=== PATIENT | female | born 1965 | race Caucasian/White ===

== ENCOUNTER → 2016-03-27 | Outpatient (CLI) | payer MEDICARE, OTHER ==
--- NOTE | 2016-03-27 19:24 | CT ---
EXAMINATION TYPE: CT brain wo/w con DATE OF EXAM: 03/27/2016 7:17 PM COMPARISON: NONE HISTORY: Headache x [address] DLP: 2161.00 mGycm Automated exposure control for dose reduction was used. CONTRAST: CT scan of the head is performed without and with IV Contrast, patient injected with 100 mL of Omnipa que 300. FINDINGS: The ventricles and sulci appear normal. There is no mass effect nor midline shift. There is no sign o f intracranial hemorrhage. There is no pathologic enhancement. The calvarium is intact. IMPRESSION: Negative CT scan of the brain with and without contrast.
== END | disposition home or self-care (01) ==
LOC: RADCTMAIN 18:39
PROVIDERS: ATTEND Family Medicine
DX: R51 Headache (principal)
CPT/HCPCS: 70470; Q9967

== ENCOUNTER → 2016-07-24 | Outpatient (CLI) | payer MEDICARE, OTHER ==
--- NOTE | 2016-07-24 08:30 | CT ---
EXAMINATION TYPE: CT cervical spine wo con DATE OF EXAM: 07/24/2016 COMPARISON: NONE HISTORY: Chronic headaches CT DLP: 275.50 mGycm Automated exposure control for dose reduction was used. TECHNIQUE: CT scan of the cervical spine is obtained without contrast, axial images are obtained, sa gittal and coronal reformatted images are also reviewed. FINDINGS: No acute fractures are evident. Disc heights are preserved. Vertebral body heights are pres erved. No spinal canal stenosis or neural foraminal stenosis is present. There is some straightening of the cervical spine which can be related to patient positioning or muscle spasm. No suspicious foca l disc herniations or significant disc bulges are evident. There is some mild uncovertebral joint hyp ertrophy without foraminal stenosis. IMPRESSION: 1. Very minimal degenerative joint changes. 2. No acute osseous process.
== END | disposition home or self-care (01) ==
LOC: RADCTMAIN 07:10
PROVIDERS: ATTEND Family Medicine
DX: M47.812 Spondylosis without myelopathy or radiculopathy, cervical region (principal); R51 Headache
CPT/HCPCS: 72125

== ENCOUNTER → 2016-12-04 | Outpatient (CLI) | payer MEDICARE, OTHER ==
[2016-12-04 09:40] LABS: Anion Gap 9 mmol/L; Blood Urea Nitrogen 15 mg/dL (7-17); Calcium 9.2 mg/dL (8.4-10.2); Carbon Dioxide 25 mmol/L (22-30); Chloride 108 mmol/L (98-107); Glucose 85 mg/dL (74-99); Non-African American GFR(MDRD) >60 (>60 ml/min/1.73 sqM); Sodium 142 mmol/L (137-145)
[2016-12-04 09:42] LABS: CH 29.5; CHCM 31.7; HCT 39.3 % (34.0-46.0); HDW 2.13; HGB 12.5 gm/dL (11.4-16.0); MCH 29.7 pg (25.0-35.0); MCHC 31.9 g/dL (31.0-37.0); MCV 93.2 fL (80.0-100.0); Mean Platelet Volume 6.8; RBC 4.22 m/uL (3.80-5.40); RDW 12.3 % (11.5-15.5); WBC 6.9 k/uL (3.8-10.6)
== END | disposition home or self-care (01) ==
LOC: LABWHC1 08:24
PROVIDERS: ATTEND Internal Medicine Clinical Cardiac Electrophysiology
DX: R55 Syncope and collapse (principal); R00.2 Palpitations
CPT/HCPCS: 36415; 80048; 85027

== ENCOUNTER 2017-03-03 16:36 | Emergency (ER) | payer MEDICARE, OTHER ==
[2017-03-03 16:45] VITALS: BP 136/63; TEMP 97.3
[2017-03-03] MEDS ORDERED: DIPH,PERTUS(ACELL)TETVAC-LF 0.5 ML VIAL IM ONE (17:01)
[2017-03-03] MEDS ORDERED: KETOROLAC 30 MG/ML 1 ML VIAL IM STA (17:01)
[2017-03-03] MEDS ORDERED: DOXYCYCLINE 50 MG CAP PO STA (17:01)
--- NOTE | 2017-03-03 17:03 | ED ---
Animal Bite HPI - General Chief Complaint: Animal Bite Stated Complaint: Cat Bite Time Seen by Provider: 03/03/17 16:52 Source: patient Mode of arrival: ambulatory Limitations: no limitations - History of Present Illness Initial Comments: 59-year-old female patient presents to the emergency department today for evaluation of a cat bite to the left hand. Patient states that throughout the day the hand has become more painful and swollen. She states that the cat is up -to-date on his immunizations. She is unsure when her last tetanus vaccine was. She denies any difficulty with range of motion to the hand. Patient denies any headache, neck pain, back pain, chest pain, shortness of breath, dizziness, weakness, abdominal pain, nausea, vomiting, or difficulties with bowel movements or urination. - Related Data Home Medications Medication Instructions Recorded Confirmed ALPRAZolam [Xanax] 0.25 mg PO BID PRN 01/04/14 12/14/16 lamoTRIgine [LaMICtal] 200 mg PO BID 01/04/14 12/14/16 Cyclobenzaprine [Flexeril] 10 mg PO HS 12/08/16 12/14/16 Levothyroxine Sodium [Synthroid] 25 mcg PO DAILY 12/08/16 12/14/16 Omeprazole [PriLOSEC] 40 mg PO AC-BRKFST 12/08/16 12/14/16 QUEtiapine FUMARATE [SEROquel] 400 mg PO HS 12/08/16 12/14/16 Topiramate [Topamax] 100 mg PO BID 12/08/16 12/14/16 Venlafaxine HCl [Effexor XR] 225 mg PO HS 12/08/16 12/14/16 metFORMIN HCL [Glucophage] 500 mg PO HS 12/08/16 12/14/16 oxyCODONE-APAP 10-325MG [Percocet 1 tab PO TID 12/08/16 12/14/16 10-325 mg] Previous Rx's Medication Instructions Recorded Doxycycline Hyclate 100 mg PO BID #28 tab 03/03/17 Allergies Allergy/AdvReac Type Severity Reaction Status Date / Time Penicillins Allergy Unknown Verified 03/03/17 16:45 Review of Systems ROS Statement: Those systems with pertinent positive or pertinent negative responses have been documented in the HPI. ROS Other: All systems not noted in ROS Statement are negative. Past Medical History Past Medical History: Seizure Disorder Additional Past Medical History / Comment(s): colitis History of Any Multi-Drug Resistant Organisms: None Reported Past Surgical History: Hysterectomy, Orthopedic Surgery Past Psychological History: Anxiety, Bipolar, Depression Smoking Status: Current every day smoker Past Alcohol Use History: None Reported Past Drug Use History: None Reported General Exam Limitations: no limitations General appearance: alert, in no apparent distress, other (This is a well- developed, well-nourished adult female patient in no acute distress. Vital signs upon presentation are temperature 97.3F, pulse 108, respirations 20, blood pressure 136/63, pulse ox 100% on room air.) Eye exam: Present: normal appearance, PERRL, EOMI. Absent: scleral icterus, conjunctival injection, periorbital swelling ENT exam: Present: normal exam, normal oropharynx, mucous membranes moist Respiratory exam: Present: normal lung sounds bilaterally. Absent: respiratory distress, wheezes, rales, rhonchi, stridor Cardiovascular Exam: Present: regular rate, normal rhythm, normal heart sounds. Absent: systolic murmur, diastolic murmur, rubs, gallop, clicks GI/Abdominal exam: Present: soft, normal bowel sounds. Absent: distended, tenderness, guarding, rebound, rigid Extremities exam: Present: full ROM, tenderness (Over the dorsum of the left hand), normal capillary refill, other (Swelling over the dorsum of the left hand. 2 scabbed puncture wounds noted, with minimal surrounding erythema.. Skin is otherwise pink, warm, and dry. Temperature is equal to the other hand. Radial pulses 2+ and equal bilaterally. Patient exhibits full range of motion of the hand. ). Absent: normal inspection, pedal edema, joint swelling , calf tenderness Neurological exam: Present: alert, oriented X3, CN II-XII intact Psychiatric exam: Present: normal affect, normal mood Skin exam: Present: warm, dry, intact, normal color. Absent: rash Course Vital Signs 03/03/17 16:42 Temperature 97.3 F L Pulse Rate 108 H Respiratory 20 Rate Blood Pressure 136/63 O2 Sat by Pulse 100 Oximetry Medical Decision Making - Medical Decision Making 51-year-old female patient presents to the emergency department today for evaluation of a Bite to her left hand. Physical examination did reveal 2 puncture wounds with minimal surrounding erythema. Patient will be given a dose of doxycycline here in the department. She'll be given a prescription for doxycycline for 14 days. She is also given a be updated on her tetanus. She' ll be discharged home at this time to follow-up with her primary care physician for recheck in 1-2 days. She was educated regarding return parameters. She is instructed to return here immediately for any new, worsening, or concerning symptoms. Disposition Clinical Impression: Cat bite of hand Disposition: HOME SELF-CARE Condition: Good Instructions: Animal Bite (ED) Additional Instructions: Return immediately if you see red streaking from the wound up your hand or arm. Follow-up with her primary care physician for recheck of the wounds in 1-2 days. Take home pain medications as directed for relief. Keep hand elevated. Return here immediately for any other new, worsening, or concerning symptoms. Prescriptions: Doxycycline Hyclate 100 mg PO BID #28 tab Referrals: Zofia Mosqueda DO [Primary Care Provider] - 1-2 days Time of Disposition: 17:03
[2017-03-03 17:34] VITALS: PULSE 98; RESP 18
== END 2017-03-03 17:34 | disposition home or self-care (01) ==
LOC: EC 16:36
DX: S61.452A Open bite of left hand, initial encounter (principal); F41.9 Anxiety disorder, unspecified; F32.9 Major depressive disorder, single episode, unspecified; F17.200 Nicotine dependence, unspecified, uncomplicated; Z23 Encounter for immunization; Z86.69 Personal history of other diseases of the nervous system and sense organs; Z79.84 Long term (current) use of oral hypoglycemic drugs; Z79.891 Long term (current) use of opiate analgesic; Z79.899 Other long term (current) drug therapy; Z88.0 Allergy status to penicillin; W55.01XA Bitten by cat, initial encounter
CPT/HCPCS: 99283; 96372; 90471; 90715; J1885

== ENCOUNTER → 2017-04-24 | Outpatient (CLI) | payer MEDICARE, OTHER ==
--- NOTE | 2017-04-24 14:02 | US ---
EXAMINATION TYPE: US pelvic complete DATE OF EXAM: 04/24/2017 COMPARISON: CT & US 2014 CLINICAL HISTORY: Pelvic Pain R10.2. Intermittent left pelvic pain x 6 months, history of ovarian cys ts, hysterectomy and right oophorectomy 20+ years ago, 0 TECHNIQUE: Transabdominal sonographic images of the pelvis were acquired. Transvaginal sonographic images were medically necessary to better assess the following anatomy: left ovary Date of LMP: 20+ years ago EXAM MEASUREMENTS: Uterus: surgically absent Endometrial Stripe: surgically absent Right Ovary: surgically absent Left Ovary: not seen 1. Uterus: surgically absent 2. Endometrium: surgically absent 3. Right Ovary: surgically absent 4. Left Ovary: not seen due to overlying peristalsing bowel 5. Bilateral Adnexa: wnl 6. Posterior cul-de-sac: wnl IMPRESSION: Postsurgical pelvic ultrasound appears within normal limits
--- NOTE | 2017-04-24 14:03 | US ---
EXAMINATION TYPE: US abdomen complete DATE OF EXAM: 04/24/2017 COMPARISON: CT & US 2014 CLINICAL HISTORY: R10.84 abdominal pain. Intermittent left pelvic pain x 6 months EXAM MEASUREMENTS: Liver Length: 14.4 cm Gallbladder Wall: 0.2 cm CBD: 0.4 cm Spleen: 8.3 cm Right Kidney: 9.4 x 4.1 x 4.9 cm Left Kidney: 9.4 x 5.2 x 4.8 cm Pancreas: visualized portions wnl, tail obscured by overlying midline bowel gas Liver: wnl Gallbladder: multiple echogenic shadowing foci, wall measures wnl Evidence for sonographic Manjarrez's sign: yes CBD: wnl Spleen: visualized portions wnl, limited by rib shadowing and overlying bowel gas Right Kidney: wnl Left Kidney: visualized portions wnl, limited by rib shadowing and overlying bowel gas Upper IVC: wnl Abd Aorta: wnl IMPRESSION: 1. Cholelithiasis. 2. Tiny cyst at the inferior pole left kidney.
== END | disposition home or self-care (01) ==
LOC: RADUSWWP 08:36
PROVIDERS: ATTEND Family Medicine
DX: K80.20 Calculus of gallbladder without cholecystitis without obstruction (principal); R10.2 Pelvic and perineal pain; Z98.890 Other specified postprocedural states
CPT/HCPCS: 76700; 76830; 76856

== ENCOUNTER → 2017-05-07 | Outpatient (CLI) | payer MEDICARE, OTHER ==
[2017-05-07 13:28] LABS: Blood Urea Nitrogen 15 mg/dL (7-17)
--- NOTE | 2017-05-07 14:39 | CT ---
EXAMINATION TYPE: CT pelvis w con DATE OF EXAM: 05/07/2017 COMPARISON: NONE HISTORY: Left lower quadrant pain. Previous cyst found on left ovary per patient. CT DLP: 552 mGycm Automated exposure control for dose reduction was used. CONTRAST: Performed with IV Contrast, patient injected with 100 mL of Isovue M300. FINDINGS: Bowel gas pattern nonspecific. Osseous structures intact. No free fluid. Aorta of normal caliber with atherosclerotic changes. No pathologic adenopathy. Uterus is not seen correlate for previous hysterectomy. No adnexal mass. IMPRESSION: NO ACUTE PROCESS.
== END | disposition home or self-care (01) ==
LOC: RADCTMAIN 12:29
PROVIDERS: ATTEND Family Medicine
DX: R10.2 Pelvic and perineal pain (principal); R10.9 Unspecified abdominal pain; Z88.0 Allergy status to penicillin
CPT/HCPCS: 82565; 84520; 72193; 36415; Q9967

== ENCOUNTER 2017-05-10 08:54 | Day surgery (SDC) | payer MEDICARE, OTHER ==
[2017-05-08 10:11] VITALS: BMI 19.3
[~2017-05-10 08:54] MED LIST: DEXAMETHASONE SOD PHOSPHATE 10 MG/ML 1 ML VIAL IV ONE; HEPARIN SODIUM,PORCINE 5,000 UNIT/ML 1 ML VIAL SQ ONE; HYDROmorphone 0.5 MG/0.5 ML SYRINGE IVP PRN; LACTATED RINGERS 1,000 ML IV SCH; LIDOCAINE 1% 20 ML VIAL (10MG/ML) FOR IV START INTRADERMA PRN; MIDAZOLAM 2 MG/2 ML VIAL IV PRN; MORPHINE SULFATE 2 MG/ML SYRINGE IV PRN; ONDANSETRON 4 MG/2 ML VIAL IVP ONE; SCOPOLAMINE 1.5MG/72HR PATCH TRANSDERM ONE; ceFAZolin IN SWFI 2 GM/20 ML SYRINGE IVP ONE; fentaNYL (PF) 50 MCG/ML 2 ML AMP IV PRN; metroNIDAZOLE-NS PMX 500 MG in SALINE 1 100ML.BAG IVPB ONE
[2017-05-10 10:10] LABS: Glucose,Whole Blood 96 mg/dL (75-99)
--- NOTE | 2017-05-10 10:19 | P.GSHP ---
History of Present Illness H&P Date: 05/10/17 Chief Complaint: Right upper quadrant pain, cholelithiasis This is a 51-year-old female who sees Dr. Zofia Mosqueda is an outpatient. Patient complaints of epigastric and right upper quadrant abdominal pain. Her recent ultrasound shows evidence of cholelithiasis. She presents today for laparoscopic cholecystectomy. Past Medical History Past Medical History: GERD/Reflux, Seizure Disorder, Thyroid Disorder Additional Past Medical History / Comment(s): GALLBLADDER DISORDER. LAST SEIZURE 05/06/17. NEUROPATHY RT FOOT History of Any Multi-Drug Resistant Organisms: None Reported Past Surgical History: Hysterectomy, Orthopedic Surgery Additional Past Surgical History / Comment(s): VAGUS NERVE STIMULATOR FOR SEIZURES. LT SHOULDER SX. BILAT EYE SX. COLONOSCOPY Past Anesthesia/Blood Transfusion Reactions: No Reported Reaction Smoking Status: Former smoker - Past Family History Mother Family Medical History: No Reported History Medications and Allergies Home Medications Medication Instructions Recorded Confirmed Type lamoTRIgine [LaMICtal] 200 mg PO BID 01/04/14 05/10/17 History Levothyroxine Sodium [Synthroid] 25 mcg PO DAILY 12/08/16 05/10/17 History Omeprazole [PriLOSEC] 40 mg PO AC-BRKFST 12/08/16 05/10/17 History QUEtiapine FUMARATE [SEROquel] 400 mg PO HS 12/08/16 05/10/17 History Topiramate [Topamax] 100 mg PO BID 12/08/16 05/10/17 History metFORMIN HCL [Glucophage] 500 mg PO HS 12/08/16 05/10/17 History oxyCODONE-APAP 10-325MG [Percocet 1 tab PO TID 12/08/16 05/10/17 History 10-325 mg] DULoxetine HCL [Cymbalta] 60 mg PO HS 05/08/17 05/10/17 History Fludrocortisone [Florinef] 0.1 mg PO DAILY 05/08/17 05/10/17 History busPIRone HCL 10 mg PO BID 05/08/17 05/10/17 History Allergies Allergy/AdvReac Type Severity Reaction Status Date / Time Penicillins Allergy Unknown Verified 03/03/17 16:45 Surgical - Exam Vital Signs Temp Pulse Resp BP Pulse Ox 99.2 F 107 H 16 120/59 98 05/10/17 09:48 05/10/17 09:48 05/10/17 09:48 05/10/17 09:48 05/10/17 09:48 - General well developed, no distress - Eyes PERRL - ENT normal pinna - Neck no masses - Respiratory normal expansion - Cardiovascular Rhythm: regular - Abdomen Abdomen: soft, non tender Assessment and Plan Assessment: Right upper quadrant pain Cholelithiasis We'll perform laparoscopic cholecystectomy.
[2017-05-10] MEDS ORDERED: PROPOFOL 10 MG/ML 20 ML VIAL IV ONE (10:42)
[2017-05-10] MEDS ORDERED: NEOSTIGMINE 1 MG/ML 10 ML VIAL ONE (10:42)
[2017-05-10] MEDS ORDERED: fentaNYL (PF) 50 MCG/ML 2 ML AMP ONE (10:42)
[2017-05-10] MEDS ORDERED: LIDOCAINE 1% INJ 10MG/ML (20 ML MDV) ONE (10:42)
[2017-05-10] MEDS ORDERED: SUCCINYLCHOLINE CHLORIDE 100 MG/5 ML SYR IV ONE (10:42)
[2017-05-10] MEDS ORDERED: MIDAZOLAM 2 MG/2 ML VIAL ONE (10:42)
[2017-05-10] MEDS ORDERED: GLYCOPYRROLATE 0.2 MG/ML 2 ML VIAL ONE (10:42)
[2017-05-10] MEDS ORDERED: SODIUM CHLORIDE 0.9% 50 ML with ceFAZolin 2,000 MG IV ONE ×2 (10:42)
[2017-05-10] MEDS ORDERED: KETOROLAC 30 MG/ML 1 ML VIAL ONE (10:42)
[2017-05-10] MEDS ORDERED: ROCURONIUM BROMIDE 10 MG/ML 10 ML VIAL IV ONE (10:42)
[2017-05-10] MEDS ORDERED: BUPIVACAINE (PF) 0.25% 30 ML VIAL SQ ONE (10:59)
--- NOTE | 2017-05-10 11:12 | P.OP ---
Date of Procedure: 05/10/17 Preoperative Diagnosis: Cholelithiasis Chronic cholecystitis Postoperative Diagnosis: Cholelithiasis Chronic cholecystitis Procedure(s) Performed: Laparoscopic cholecystectomy Anesthesia: AUGUSTIN Surgeon: Alexander Mercado Estimated Blood Loss (ml): 5 Pathology: other (Gallbladder) Condition: stable Disposition: PACU Description of Procedure: The patient was placed on the operating table. The patient received a general endotracheal tube anesthesia. The patients abdomen was prepped and draped in the usual sterile fashion. Through an infraumbilical stab incision, the fascia of the anterior abdominal wall was grasped with a pair of Kochers and then the Veress needle was placed in the peritoneal cavity. Position of the Veress needle was confirmed with positive drop test. The abdomen was then insufflated. After adequate insufflation, the 10 mm trocar was placed in the peritoneal cavity. Following this the laparoscope was placed in the peritoneal cavity. The patient was placed in the head-up, right side up position and then a 5 mm trocar was placed in the right lateral and right subcostal position under direct visualization. A 8 mm trocar was placed in the epigastric position. The gallbladder was grasped in the fundus and infundibulum. Traction on the gallbladder was placed in the lateral and the cephalad positions. The triangle of Calot was visualized.. The cystic duct was bluntly dissected until the union of the cystic duct and common bile duct was seen. The cystic duct was then divided and sealed with the Harmonic scissors. A PDS Endoloop was then placed throughout the cystic duct stump. The cystic artery divided and sealed with the Harmonic scissors. The gallbladder was then removed from the liver bed using Harmonic scissors. The gallbladder was then extracted through the epigastric port site. Operative field was checked for any bleeding spots and Harmonic scissors was used to coagulate the liver bed. The abdomen was irrigated. The trocars were removed. The skin was closed using interrupted 3-0 Vicryl suture. Dermabond dressing were applied. The patient tolerated the procedure well.
[2017-05-10 11:29] VITALS: TEMP 97.5
[2017-05-10] MEDS: MEPERIDINE 50 MG/ML SYRINGE IVP ONE ×2 (11:35→11:41)
[2017-05-10] MEDS ORDERED: diphenhydrAMINE 50 MG/ML 1 ML VIAL IVP ONE (11:40)
[2017-05-10] MEDS ORDERED: LACTATED RINGERS 1,000 ML IV ONE (11:41)
[2017-05-10 12:32] VITALS: RESP 16
[2017-05-10] MEDS ORDERED: HYDROcodone/APAP 7.5-325MG 1 EACH TAB PO ONE (12:36)
[2017-05-10 12:50] VITALS: BP 115/74; PULSE 64
== END 2017-05-10 12:59 | disposition home or self-care (01) ==
LOC: OR 08:54
PROVIDERS: ATTEND Surgery
DX: K80.10 Calculus of gallbladder with chronic cholecystitis without obstruction (principal); E07.9 Disorder of thyroid, unspecified; G40.909 Epilepsy, unspecified, not intractable, without status epilepticus; E11.40 Type 2 diabetes mellitus with diabetic neuropathy, unspecified; F41.9 Anxiety disorder, unspecified; K21.9 Gastro-esophageal reflux disease without esophagitis; F31.9 Bipolar disorder, unspecified; Z87.891 Personal history of nicotine dependence; Z88.0 Allergy status to penicillin; Z90.710 Acquired absence of both cervix and uterus; Z79.84 Long term (current) use of oral hypoglycemic drugs; Z79.899 Other long term (current) drug therapy; Z79.891 Long term (current) use of opiate analgesic
CPT/HCPCS: 88304; 47562; J2250; J1200; J1644; J1100; J2710; J2175; J2405; J2001; J3010; J1885; J0690; J0330; J2704

== ENCOUNTER → 2017-06-18 | Outpatient (CLI) | payer MEDICARE, OTHER ==
--- NOTE | 2017-06-19 09:11 | MM ---
Reason for exam: screening (asymptomatic). Last mammogram was performed 1 year and 1 month ago. Physical Findings: A clinical breast exam by your physician is recommended on an annual basis and results should be correlated with mammographic findings. MG Screening Mammo w CAD Bilateral CC and MLO view(s) were taken. Prior study comparison: May 18, 2016, bilateral MG diagnostic mammo w CAD ANTONIA. September 11, 2014, bilateral MG screening mammo w CAD. The breast tissue is heterogeneously dense. This may lower the sensitivity of mammography. There is chronic nodularity bilaterally. There is no dominant lesion. No significant changes when compared with prior studies. ASSESSMENT: Benign, BI-RAD 2 RECOMMENDATION: Routine screening mammogram of both breasts in 1 year.
== END | disposition home or self-care (01) ==
LOC: RADMAMWWP 09:01
PROVIDERS: ATTEND Family Medicine
DX: Z12.31 Encounter for screening mammogram for malignant neoplasm of breast (principal)
CPT/HCPCS: 77067

== ENCOUNTER → 2017-06-21 | Outpatient (CLI) | payer MEDICARE, OTHER ==
--- NOTE | 2017-06-21 10:30 | CT ---
EXAMINATION TYPE: CT brain wo con DATE OF EXAM: 06/21/2017 COMPARISON: 03/27/2016 INDICATION: TABARES, dizziness DLP: 1121 mGycm, Automated exposure control for dose reduction was used. CONTRAST: None CT of the brain is performed utilizing 3 mm thick sections through the posterior fossa and 3 mm thick sections through the remaining calvarium. Study is performed within 24 hours of arrival to the hosp [facility]. No abnormal hyperdensity is present to suggest an acute intracranial hemorrhage. No mass lesion is evident. No acute infarcts are evident. Ventricles and sulci are appropriate for the patient age. Paranasal sinuses and mastoid air cells within the [id number] are clear. IMPRESSIONS: 1. Normal CT Brain
== END | disposition home or self-care (01) ==
LOC: RADCTMAIN 08:35
PROVIDERS: ATTEND Psychiatry & Neurology Neurology
DX: R42 Dizziness and giddiness (principal); R56.9 Unspecified convulsions; Z88.0 Allergy status to penicillin
CPT/HCPCS: 36415; 70450; 80201

== ENCOUNTER → 2017-07-14 | Outpatient (CLI) | payer MEDICARE, OTHER | END | disposition home or self-care (01) | LOC: LABWHC1 08:30 | PROVIDERS: ATTEND Psychiatry & Neurology Pain Medicine | DX: Z01.818 Encounter for other preprocedural examination (principal) | CPT/HCPCS: 93005 ==

== ENCOUNTER → 2017-08-07 | Outpatient (CLI) | payer MEDICARE, OTHER ==
[2017-08-07 11:57] LABS: HCT 42.5 % (34.0-46.0); HGB 13.4 gm/dL (11.4-16.0); MCH 28.6 pg (25.0-35.0); MCHC 31.6 g/dL (31.0-37.0); MCV 90.8 fL (80.0-100.0); Mean Platelet Volume 6.8; Platelet Count 336 k/uL (150-450); RBC 4.68 m/uL (3.80-5.40); RDW 12.7 % (11.5-15.5); WBC 8.1 k/uL (3.8-10.6)
[2017-08-07 12:10] LABS: Albumin 4.1 g/dL (3.5-5.0); Calcium 9.8 mg/dL (8.4-10.2); Potassium 4.5 mmol/L (3.5-5.1); Total Bilirubin 0.2 mg/dL (0.2-1.3); Total Protein 6.8 g/dL (6.3-8.2)
[2017-08-07 12:23] LABS: T4, Free (Free Thyroxine) 0.87 ng/dL (0.78-2.19)
== END | disposition home or self-care (01) ==
LOC: LABWHC1 11:19
PROVIDERS: ATTEND Internal Medicine Clinical Cardiac Electrophysiology
DX: R06.02 Shortness of breath (principal); R53.83 Other fatigue; R00.0 Tachycardia, unspecified
CPT/HCPCS: 36415; 80053; 84439; 84443; 85027

== ENCOUNTER → 2017-09-11 | Outpatient (CLI) | payer MEDICARE, OTHER ==
--- NOTE | 2017-09-11 19:03 | CT ---
EXAMINATION TYPE: CT knee LT wo con DATE OF EXAM: 09/11/2017 COMPARISON: None HISTORY: Pain in left knee and Effusion left knee CT DLP: 283 mGycm Automated exposure control for dose reduction was used. TECHNIQUE: Axial images 3 mm thick sections. Reconstructed images in the coronal and sagittal planes. FINDINGS: Patellofemoral joint space appears preserved. Medial and lateral compartments are narrowed. No acute fractures are identified. No significant joint effusion is evident. Soft tissues appear normal. There is some slight increased sclerosis at the tibial plateau and distal femoral condyles compatible with moderate degenerative change. IMPRESSION: 1. OSTEOARTHRITIC DEGENERATIVE CHANGE GREATEST IN THE MEDIAL COMPARTMENT WITH SOME NARROWING AND SCLE ROSIS. 2. NO UNDERLYING FRACTURES IDENTIFIED. 3. NO SIGNIFICANT EFFUSION IDENTIFIED.
== END | disposition home or self-care (01) ==
LOC: RADCTMAIN 09:14
PROVIDERS: ATTEND Orthopaedic Surgery
DX: M25.862 Other specified joint disorders, left knee (principal); M17.12 Unilateral primary osteoarthritis, left knee

== ENCOUNTER 2017-10-06 14:24 | Observation (INO) | payer MEDICARE, OTHER ==
[2017-10-06] MEDS ORDERED: ASPIRIN 81 MG PO STA (14:54)
[2017-10-06] MEDS ORDERED: NITROGLYCERIN SL TABS 0.4 MG TAB SUBLINGUAL STA ×3 (14:54)
--- NOTE | 2017-10-06 14:57 | ED ---
General Adult HPI - General Chief complaint: Chest Pain Stated complaint: chest pain Time Seen by Provider: 10/06/17 14:45 Source: patient, RN notes reviewed Mode of arrival: ambulatory Limitations: no limitations - History of Present Illness Initial comments: Patient is a pleasant 52-year-old female presenting to the emergency Department with complaints of chest discomfort. Onset of symptoms was last night. Symptoms have been fairly steady. Discomfort does feel like pressure mostly on the right side near the breast. Patient does have some mild associated dyspnea and nausea. Patient was sweaty earlier this morning. No history of similar symptoms previously. Discomfort is currently rated5- 6/10. No leg pain or leg swelling. - Related Data Home Medications Medication Instructions Recorded Confirmed lamoTRIgine [LaMICtal] 200 mg PO BID 01/04/14 10/06/17 Levothyroxine Sodium [Synthroid] 25 mcg PO DAILY 12/08/16 10/06/17 Omeprazole [PriLOSEC] 40 mg PO AC-BRKFST 12/08/16 10/06/17 Topiramate [Topamax] 100 mg PO BID 12/08/16 10/06/17 metFORMIN HCL [Glucophage] 500 mg PO HS 12/08/16 10/06/17 oxyCODONE-APAP 10-325MG [Percocet 1 tab PO TID 12/08/16 10/06/17 10-325 mg] DULoxetine HCL [Cymbalta] 60 mg PO BID 05/08/17 10/06/17 Fludrocortisone [Florinef] 0.1 mg PO DAILY 05/08/17 10/06/17 Ibuprofen [Motrin] 800 mg PO DAILY PRN 10/06/17 10/06/17 QUEtiapine FUMARATE [Seroquel Xr] 400 mg PO HS 10/06/17 10/06/17 Topiramate [Topamax] 50 mg PO BID 10/06/17 10/06/17 Allergies Allergy/AdvReac Type Severity Reaction Status Date / Time Penicillins Allergy Unknown Verified 10/06/17 15:17 Review of Systems ROS Statement: Those systems with pertinent positive or pertinent negative responses have been documented in the HPI. ROS Other: All systems not noted in ROS Statement are negative. Constitutional: Denies: fever Eyes: Denies: eye pain ENT: Denies: ear pain Respiratory: Reports: dyspnea. Denies: cough Cardiovascular: Reports: chest pain Endocrine: Denies: fatigue Gastrointestinal: Reports: nausea. Denies: abdominal pain Genitourinary: Denies: dysuria Musculoskeletal: Denies: back pain Skin: Denies: rash Neurological: Denies: weakness Past Medical History Past Medical History: Seizure Disorder Additional Past Medical History / Comment(s): colitis, neuropathy History of Any Multi-Drug Resistant Organisms: None Reported Past Surgical History: Hysterectomy, Orthopedic Surgery Additional Past Surgical History / Comment(s): vagus nerve stimulator Past Psychological History: Anxiety, Bipolar, Depression Smoking Status: Current every day smoker Past Alcohol Use History: None Reported Past Drug Use History: None Reported General Exam Limitations: no limitations General appearance: alert, in no apparent distress Head exam: Present: atraumatic Eye exam: Present: normal appearance, PERRL ENT exam: Present: normal oropharynx Neck exam: Present: normal inspection Respiratory exam: Present: normal lung sounds bilaterally. Absent: chest wall tenderness Cardiovascular Exam: Present: regular rate, normal rhythm Expanded Peripheral pulses: 2+: Radial (R), Radial (L), Dorsalis Pedis (R), Dorsalis Pedis (L) GI/Abdominal exam: Present: soft. Absent: tenderness Extremities exam: Present: normal inspection. Absent: pedal edema, calf tenderness Neurological exam: Present: alert Psychiatric exam: Present: normal affect, normal mood Skin exam: Present: normal color Course Vital Signs 10/06/17 10/06/17 10/06/17 14:28 15:00 15:03 Temperature 98.7 F Pulse Rate 101 H 92 Respiratory 18 18 18 Rate Blood Pressure 108/61 103/55 O2 Sat by Pulse 97 99 Oximetry 10/06/17 10/06/17 10/06/17 15:06 15:10 15:16 Temperature Pulse Rate 101 H 102 H 98 Respiratory 18 18 18 Rate Blood Pressure 108/60 110/63 104/58 O2 Sat by Pulse 96 97 98 Oximetry EKG Findings - EKG Comments: EKG Findings:: Normal sinus rhythm 96. CT 126. QRS 76. QT 340. QTc 429. Normal axis. Normal QRS. No acute ST change. Medical Decision Making - Medical Decision Making Patient reevaluated and resting comfortably in bed. Patient symptom-free following nitroglycerin. Patient updated on results and plan. Case was discussed in detail with Dr. Roblero, who will admit for Dr. Mosqueda. - Lab Data Result diagrams: 10/06/17 14:40 10/06/17 14:40 Lab Results 10/06/17 10/06/17 10/06/17 Range/Units 14:40 14:40 14:40 WBC 8.7 (3.8-10.6) k/uL RBC 4.74 (3.80-5.40) m/uL Hgb 13.0 (11.4-16.0) gm/dL Hct 41.4 (34.0-46.0) % MCV 87.4 (80.0-100.0) fL MCH 27.4 (25.0-35.0) pg MCHC 31.3 (31.0-37.0) g/dL RDW 12.9 (11.5-15.5) % Plt Count 330 (150-450) k/uL Neutrophils % 65 % Lymphocytes % 26 % Monocytes % 5 % Eosinophils % 2 % Basophils % 1 % Neutrophils # 5.6 (1.3-7.7) k/uL Lymphocytes # 2.3 (1.0-4.8) k/uL Monocytes # 0.5 (0-1.0) k/uL Eosinophils # 0.1 (0-0.7) k/uL Basophils # 0.1 (0-0.2) k/uL PT (9.0-12.0) sec INR (<1.2) APTT (22.0-30.0) sec D-Dimer (<0.60) mg/L FEU Sodium 141 (137-145) mmol/L Potassium 4.1 (3.5-5.1) mmol/L Chloride 110 H (98-107) mmol/L Carbon Dioxide 23 (22-30) mmol/L Anion Gap 8 mmol/L BUN 12 (7-17) mg/dL Creatinine 1.06 H (0.52-1.04) mg/dL Est GFR (CKD-EPI)AfAm 70 (>60 ml/min/1.73 sqM) Est GFR (CKD-EPI)NonAf 61 (>60 ml/min/1.73 sqM) Glucose 102 H (74-99) mg/dL Calcium 9.4 (8.4-10.2) mg/dL Magnesium 2.0 (1.6-2.3) mg/dL Total Bilirubin 0.2 (0.2-1.3) mg/dL AST 21 (14-36) U/L ALT 19 (9-52) U/L Alkaline Phosphatase 92 (38-126) U/L Total Creatine Kinase 61 (30-135) U/L CK-MB (CK-2) 0.5 (0.0-2.4) ng/mL CK-MB (CK-2) Rel Index 0.8 Troponin I <0.012 (0.000-0.034) ng/mL Total Protein 6.9 (6.3-8.2) g/dL Albumin 3.8 (3.5-5.0) g/dL 10/06/17 Range/Units 14:40 WBC (3.8-10.6) k/uL RBC (3.80-5.40) m/uL Hgb (11.4-16.0) gm/dL Hct (34.0-46.0) % MCV (80.0-100.0) fL MCH (25.0-35.0) pg MCHC (31.0-37.0) g/dL RDW (11.5-15.5) % Plt Count (150-450) k/uL Neutrophils % % Lymphocytes % % Monocytes % % Eosinophils % % Basophils % % Neutrophils # (1.3-7.7) k/uL Lymphocytes # (1.0-4.8) k/uL Monocytes # (0-1.0) k/uL Eosinophils # (0-0.7) k/uL Basophils # (0-0.2) k/uL PT 9.4 (9.0-12.0) sec INR 0.9 (<1.2) APTT 23.4 (22.0-30.0) sec D-Dimer 0.28 (<0.60) mg/L FEU Sodium (137-145) mmol/L Potassium (3.5-5.1) mmol/L Chloride (98-107) mmol/L Carbon Dioxide (22-30) mmol/L Anion Gap mmol/L BUN (7-17) mg/dL Creatinine (0.52-1.04) mg/dL Est GFR (CKD-EPI)AfAm (>60 ml/min/1.73 sqM) Est GFR (CKD-EPI)NonAf (>60 ml/min/1.73 sqM) Glucose (74-99) mg/dL Calcium (8.4-10.2) mg/dL Magnesium (1.6-2.3) mg/dL Total Bilirubin (0.2-1.3) mg/dL AST (14-36) U/L ALT (9-52) U/L Alkaline Phosphatase (38-126) U/L Total Creatine Kinase (30-135) U/L CK-MB (CK-2) (0.0-2.4) ng/mL CK-MB (CK-2) Rel Index Troponin I (0.000-0.034) ng/mL Total Protein (6.3-8.2) g/dL Albumin (3.5-5.0) g/dL - Radiology Data Radiology results: image reviewed (Chest x-ray shows no acute process. Device left chest.) Disposition Clinical Impression: Chest pain Disposition: ADMITTED IP TO THIS HOSP Is patient prescribed a controlled substance at d/c from ED?: No Referrals: Zofia Mosqueda DO [Primary Care Provider] - 1-2 days Decision Time: 16:07
[2017-10-06 15:06] LABS: Basophils # (A) 0.1 k/uL (0-0.2); Basophils % (A) 1 %; Eosinophils # (A) 0.1 k/uL (0-0.7); Eosinophils % (A) 2 %; HCT 41.4 % (34.0-46.0); Lymphocytes # (A) 2.3 k/uL (1.0-4.8); Lymphocytes % (A) 26 %; MCH 27.4 pg (25.0-35.0); MCHC 31.3 g/dL (31.0-37.0); MCV 87.4 fL (80.0-100.0); Mean Platelet Volume 6.5; Monocytes # (A) 0.5 k/uL (0-1.0); Monocytes % (A) 5 %; Neutrophils # (A) 5.6 k/uL (1.3-7.7); Neutrophils % (A) 65 %; Platelet Count 330 k/uL (150-450); RBC 4.74 m/uL (3.80-5.40); RDW 12.9 % (11.5-15.5); WBC 8.7 k/uL (3.8-10.6)
[2017-10-06 15:14] LABS: Albumin 3.8 g/dL (3.5-5.0); Calcium 9.4 mg/dL (8.4-10.2); Potassium 4.1 mmol/L (3.5-5.1); Total Bilirubin 0.2 mg/dL (0.2-1.3); Total Protein 6.9 g/dL (6.3-8.2)
[2017-10-06 15:21] LABS: D-Dimer 0.28 mg/L FEU (<0.60); INR 0.9 (<1.2); Partial Thromboplastin Time 23.4 sec (22.0-30.0); Prothrombin Time 9.4 sec (9.0-12.0)
[2017-10-06 15:32] LABS: Creatine Kinase 61 U/L (30-135)
--- NOTE | 2017-10-06 15:33 | XR ---
EXAMINATION TYPE: XR chest 2V DATE OF EXAM: 10/06/2017 COMPARISON: Prior chest 01/04/2014 HISTORY: Chest pain and tachycardia TECHNIQUE: Frontal and lateral views of the chest are obtained. FINDINGS: There is no focal air space opacity, pleural effusion, or pneumothorax seen. The cardiac silhouette size is within normal limits. The osseous structures are intact. Generator device in the left pectoral region shows a lead coursing cephalad as on prior exam the extent of the exam. There a re overlying cardiac leads. Postop changes are noted to the left shoulder. Prominent lung volume coul d be indicative of underlying COPD. IMPRESSION: No acute cardiopulmonary process.
[2017-10-06 15:44] LABS: Creatine Kinase MB 0.5 ng/mL (0.0-2.4); Troponin I <0.012 ng/mL (0.000-0.034)
[2017-10-06] MEDS ORDERED: NITROGLYCERIN SL TABS 0.4 MG TAB SUBLINGUAL PRN (16:07)
[2017-10-06] MEDS: oxyCODONE-APAP 10-325MG 1 EACH TAB PO PRN (18:44)
[2017-10-06] MEDS: NITROGLYCERIN OINT 1 INCH/GM PACKET TOPICAL SCH ×3 (18:47→20:25)
[2017-10-06] MEDS: DULoxetine HCL 60 MG CAPSULE.DR PO SCH (20:21)
[2017-10-06] MEDS: NICOTINE 21MG/24HR PATCH TRANSDERM SCH (20:21)
[2017-10-06] MEDS: lamoTRIgine 100 MG TAB PO SCH (20:21)
[2017-10-06] MEDS: TOPIRAMATE 25 MG TAB PO SCH (20:21)
[2017-10-06] MEDS: TOPIRAMATE 100 MG TAB PO SCH (20:24)
[2017-10-06] MEDS: QUEtiapine 200 MG TAB PO SCH (20:25)
[2017-10-06 20:46] LABS: Creatine Kinase 57 U/L (30-135)
[2017-10-06 20:59] LABS: Creatine Kinase MB 0.6 ng/mL (0.0-2.4); Troponin I <0.012 ng/mL (0.000-0.034)
[2017-10-06] MEDS ORDERED: metFORMIN 500 MG TAB PO SCH (21:00)
[2017-10-07] MEDS: oxyCODONE-APAP 10-325MG 1 EACH TAB PO PRN (02:21)
[2017-10-07 02:58] LABS: Creatine Kinase 61 U/L (30-135)
[2017-10-07 03:00] LABS: Cholesterol 255 mg/dL (<200); HDL Cholesterol 53 mg/dL (40-60); LDL Cholesterol,Calculated 154 mg/dL (0-99); Triglycerides 238 mg/dL (<150)
[2017-10-07 03:27] LABS: Creatine Kinase MB 0.7 ng/mL (0.0-2.4); Troponin I <0.012 ng/mL (0.000-0.034)
[2017-10-07] MEDS: NITROGLYCERIN OINT 1 INCH/GM PACKET TOPICAL SCH ×2 (04:25→12:37)
[2017-10-07] MEDS ORDERED: LEVOTHYROXINE 25 MCG TAB PO SCH (06:30)
[2017-10-07] MEDS ORDERED: PANTOPRAZOLE 40 MG TABLET PO SCH (07:30)
[2017-10-07] MEDS: TOPIRAMATE 100 MG TAB PO SCH (08:05)
[2017-10-07] MEDS: lamoTRIgine 100 MG TAB PO SCH (08:05)
[2017-10-07] MEDS: TOPIRAMATE 25 MG TAB PO SCH (08:05)
[2017-10-07] MEDS: DULoxetine HCL 60 MG CAPSULE.DR PO SCH (08:05)
[2017-10-07] MEDS: NICOTINE 21MG/24HR PATCH TRANSDERM SCH (08:06)
[2017-10-07] MEDS: QUEtiapine 200 MG TAB PO SCH (08:06)
[2017-10-07 08:23] VITALS: RESP 18
[2017-10-07] MEDS ORDERED: ASPIRIN 325 MG TAB PO SCH (09:00)
[2017-10-07] MEDS ORDERED: FLUDROCORTISONE 0.1 MG TAB PO SCH (09:00)
--- NOTE | 2017-10-07 10:29 | P.PN ---
Progress Note - Text Patient admitted with chest pain. Normal cardiac enzymes 3 Elevated LDL of 154, total. 255 and triglycerides 238 HDL 53 Normal ECG Normal EP study in December 2016 Orthostatic hypotension syndrome currently on Florinef Normal d-dimer Follow-up with Dr. Salvador as an outpatient
--- NOTE | 2017-10-07 10:39 | P.CRDCN ---
History of Present Illness History of present illness: HISTORY OF PRESENTING ILLNESS: The patient is a pleasant 52-year-old female who presented with pain in the right side of her chest underneath her breasts. She denies radiation of the pain to the arm, back, neck or jaw. She denies associated shortness of breath, dizziness, palpitations, nausea, vomiting or diaphoresis. Laboratory data reviewed. EKG reveals this mechanism with no acute ST or T-wave abnormalities. She states she saw her neurologist on Sunday and had her vagal nerve stimulator increased due to having a recent seizure. Chest x-ray is negative for an acute cardiopulmonary process. Laboratory data reviewed, hemoglobin 13, platelets 3:30, d-dimer 0.28, sodium 141, potassium 4.1, creatinine 1.06, magnesium 2.0, cardiac enzymes negative 3 , LDL 154, HDL 53. Current cardiac medications include Florinef 0.1 mg daily. REVIEW OF SYSTEMS: Patient denies any chest discomfort. No shortness of breath. No diaphoresis. He denies headache, dizziness, blurred vision, double vision. No dyspnea on exertion. Patient denies any stomach discomfort. No nausea, vomiting. No hematochezia. No hematemesis. Denies any black stools or blood in his stools. No syncope. No palpitations. No cough. No recent fever or chills. Denies dysuria or hematuria. No muscle weakness or numbness. PHYSICAL EXAMINATION: This is a 52-year-old occasion in no apparent distress at the time of my examination. Blood pressure 101/65, heart rate to 75, respirations 16, temp 98.1F, pulse oxygenation 98 % on room air. HEENT: Head is atraumatic, normocephalic. Pupils are equal, round. Sclerae anicteric. Conjunctivae are clear. Mucous membranes of the mouth are moist. Neck is supple. There is no jugular venous distention. No carotid bruit is heard. CHEST EXAMINATION: Lungs are clear to auscultation. No chest wall tenderness is noted on palpation or with deep breathing. HEART EXAMINATION: Heart regular rate and rhythm. S1, S2 heard. No murmurs, gallops or rub. ABDOMEN: Soft, nontender. Bowel sounds are heard. No organomegaly noted. EXTREMITIES: 2+ peripheral pulses with no evidence of peripheral edema and no calf tenderness noted. NEUROLOGIC EXAMINATION: Patient is awake, alert and oriented x3. ASSESSMENT: Right-sided chest pain, atypical. An acute coronary event has been ruled out with no EKG evidence of ischemia and negative cardiac enzymes. Dyslipidemia History of orthostatic hypotension on Florinef PLAN: An acute coronary event has been ruled out. We will obtain orthostatic vital signs. No further cardiac evaluation required at this time. Stable for discharge follow-up with Dr. Daniel at next regularly scheduled appointment. Past Medical History Past Medical History: Seizure Disorder Additional Past Medical History / Comment(s): colitis, neuropathy History of Any Multi-Drug Resistant Organisms: None Reported Past Surgical History: Hysterectomy, Orthopedic Surgery Additional Past Surgical History / Comment(s): vagus nerve stimulator Past Anesthesia/Blood Transfusion Reactions: No Reported Reaction Past Psychological History: Anxiety, Bipolar, Depression Smoking Status: Current every day smoker Past Alcohol Use History: None Reported Past Drug Use History: None Reported - Past Family History Mother Family Medical History: Congestive Heart Failure (CHF), COPD Father Family Medical History: Congestive Heart Failure (CHF), Coronary Artery Disease (CAD) Medications and Allergies Home Medications Medication Instructions Recorded Confirmed Type lamoTRIgine [LaMICtal] 200 mg PO BID 01/04/14 10/06/17 History Levothyroxine Sodium [Synthroid] 25 mcg PO DAILY 12/08/16 10/06/17 History Omeprazole [PriLOSEC] 40 mg PO AC-BRKFST 12/08/16 10/06/17 History Topiramate [Topamax] 100 mg PO BID 12/08/16 10/06/17 History metFORMIN HCL [Glucophage] 500 mg PO HS 12/08/16 10/06/17 History oxyCODONE-APAP 10-325MG [Percocet 1 tab PO TID 12/08/16 10/06/17 History 10-325 mg] DULoxetine HCL [Cymbalta] 60 mg PO BID 05/08/17 10/06/17 History Fludrocortisone [Florinef] 0.1 mg PO DAILY 05/08/17 10/06/17 History Ibuprofen [Motrin] 800 mg PO DAILY PRN 10/06/17 10/06/17 History QUEtiapine FUMARATE [Seroquel Xr] 400 mg PO HS 10/06/17 10/06/17 History Topiramate [Topamax] 50 mg PO BID 10/06/17 10/06/17 History Allergies Allergy/AdvReac Type Severity Reaction Status Date / Time Penicillins Allergy Unknown Verified 10/06/17 15:17 Physical Exam Vitals: Vital Signs Temp Pulse Pulse Resp BP BP Pulse Ox 10/07/17 04:00 16 10/07/17 03:25 98.1 F 75 16 101/65 98 10/06/17 23:11 16 10/06/17 22:55 97.5 F L 78 16 95/58 96 10/06/17 20:00 16 10/06/17 19:14 97.9 F 81 16 112/69 99 10/06/17 17:54 97.7 F 83 16 112/65 100 10/06/17 17:48 98.9 F 86 18 108/54 98 10/06/17 16:20 87 18 103/59 98 10/06/17 15:16 98 18 104/58 98 10/06/17 15:10 102 H 18 110/63 97 10/06/17 15:06 101 H 18 108/60 96 10/06/17 15:03 18 10/06/17 15:00 92 18 103/55 99 10/06/17 14:28 98.7 F 101 H 18 108/61 97 Intake and Output 10/06/17 10/07/17 10/07/17 22:59 06:59 14:59 Intake Total 240 Balance 240 Intake: Oral 240 Other: Voiding Method Toilet Toilet # Voids 1 2 Weight 57.8 kg Results 10/06/17 14:40 10/06/17 14:40 Cardiac Enzymes 10/06/17 10/06/17 10/06/17 Range/Units 14:40 14:40 20:15 AST 21 (14-36) U/L CK-MB (CK-2) 0.5 0.6 (0.0-2.4) ng/mL Troponin I <0.012 <0.012 (0.000-0.034) ng/mL 10/07/17 Range/Units 02:15 AST (14-36) U/L CK-MB (CK-2) 0.7 (0.0-2.4) ng/mL Troponin I <0.012 (0.000-0.034) ng/mL Coagulation 10/06/17 Range/Units 14:40 PT 9.4 (9.0-12.0) sec APTT 23.4 (22.0-30.0) sec Lipids 10/06/17 Range/Units 14:40 Triglycerides 238 H (<150) mg/dL Cholesterol 255 H (<200) mg/dL HDL Cholesterol 53 (40-60) mg/dL CBC 10/06/17 Range/Units 14:40 WBC 8.7 (3.8-10.6) k/uL RBC 4.74 (3.80-5.40) m/uL Hgb 13.0 (11.4-16.0) gm/dL Hct 41.4 (34.0-46.0) % Plt Count 330 (150-450) k/uL Comprehensive Metabolic Panel 10/06/17 Range/Units 14:40 Sodium 141 (137-145) mmol/L Potassium 4.1 (3.5-5.1) mmol/L Chloride 110 H (98-107) mmol/L Carbon Dioxide 23 (22-30) mmol/L BUN 12 (7-17) mg/dL Creatinine 1.06 H (0.52-1.04) mg/dL Glucose 102 H (74-99) mg/dL Calcium 9.4 (8.4-10.2) mg/dL AST 21 (14-36) U/L ALT 19 (9-52) U/L Alkaline Phosphatase 92 (38-126) U/L Total Protein 6.9 (6.3-8.2) g/dL Albumin 3.8 (3.5-5.0) g/dL Current Medications Generic Name Dose Route Start Last Admin Trade Name Christq PRN Reason Stop Dose Admin Aspirin 325 mg 10/07/17 09:00 Aspirin PO DAILY [facility] Duloxetine HCl 60 mg 10/06/17 21:00 10/06/17 20:21 Cymbalta PO 60 mg BID LUCY Administration Fludrocortisone Acetate 0.1 mg 10/07/17 09:00 Florinef PO DAILY LUCY Lamotrigine 200 mg 10/06/17 21:00 10/06/17 20:21 Lamictal PO 200 mg BID LUCY Administration Levothyroxine Sodium 25 mcg 10/07/17 06:30 10/07/17 05:18 Synthroid PO 25 mcg 0630 LUCY Administration Metformin HCl 500 mg 10/06/17 21:00 10/06/17 20:17 Glucophage PO Not Given HS LUCY Nicotine 1 patch 10/06/17 20:00 10/06/17 20:21 Habitrol 21mg/24hr Patch TRANSDERM 1 patch DAILY LUCY Administration Nitroglycerin 1 inch 10/06/17 18:00 10/07/17 04:25 Nitro-Bid Oint TOPICAL Not Given Q6HR [facility] Nitroglycerin 0.4 mg 10/06/17 16:07 Nitrostat SUBLINGUAL Q5M PRN Chest Pain Oxycodone/Acetaminophen 1 each 10/06/17 16:09 10/07/17 02:21 Percocet 10-325 PO 1 each TID PRN Administration Pain Pantoprazole Sodium 40 mg 10/07/17 07:30 10/07/17 05:50 Protonix PO 40 mg AC-BRKFST LUCY Administration Quetiapine Fumarate 200 mg 10/06/17 21:00 10/06/17 20:25 Seroquel PO 200 mg BID LUCY Administration Sodium Chloride 10 ml 10/06/17 21:00 10/06/17 20:22 Saline Flush IV 10 ml BID LUCY Administration Topiramate 100 mg 10/06/17 21:00 10/06/17 20:24 Topamax PO 100 mg BID LUCY Administration Topiramate 50 mg 10/06/17 21:00 10/06/17 20:21 Topamax PO 50 mg BID LUCY Administration Intake and Output 10/06/17 10/07/17 10/07/17 22:59 06:59 14:59 Intake Total 240 Balance 240 Intake: Oral 240 Other: Voiding Method Toilet Toilet # Voids 1 2 Weight 57.8 kg 10/06/17 14:40 10/06/17 14:40
[2017-10-07 10:40] VITALS: BP 109/69; PULSE 87
--- NOTE | 2017-10-07 11:55 | P.HPIM ---
History of Present Illness H&P Date: 10/07/17 Scout Concepcion is a 52-year-old female who presented to [facility] emergency room with a chief complaint of chest pain, pain started on the night prior to presentation patient describes a pressure sensation in the right side of her chest, she also had some shortness of breath nausea, she denies any diaphoresis, there is no radiation of the pain. Patient stated that she has vagal nerve stimulator for management of seizures, and sating has been changed recently by neurology, she started having chest discomfort soon thereafter. Past Medical History Past Medical History: Seizure Disorder Additional Past Medical History / Comment(s): colitis, neuropathy History of Any Multi-Drug Resistant Organisms: None Reported Past Surgical History: Hysterectomy, Orthopedic Surgery Additional Past Surgical History / Comment(s): vagus nerve stimulator Past Anesthesia/Blood Transfusion Reactions: No Reported Reaction Past Psychological History: Anxiety, Bipolar, Depression Smoking Status: Current every day smoker Past Alcohol Use History: None Reported Past Drug Use History: None Reported - Past Family History Mother Family Medical History: Congestive Heart Failure (CHF), COPD Father Family Medical History: Congestive Heart Failure (CHF), Coronary Artery Disease (CAD) Medications and Allergies Home Medications Medication Instructions Recorded Confirmed Type lamoTRIgine [LaMICtal] 200 mg PO BID 01/04/14 10/06/17 History Levothyroxine Sodium [Synthroid] 25 mcg PO DAILY 12/08/16 10/06/17 History Omeprazole [PriLOSEC] 40 mg PO AC-BRKFST 12/08/16 10/06/17 History Topiramate [Topamax] 100 mg PO BID 12/08/16 10/06/17 History metFORMIN HCL [Glucophage] 500 mg PO HS 12/08/16 10/06/17 History oxyCODONE-APAP 10-325MG [Percocet 1 tab PO TID 12/08/16 10/06/17 History 10-325 mg] DULoxetine HCL [Cymbalta] 60 mg PO BID 05/08/17 10/06/17 History Fludrocortisone [Florinef] 0.1 mg PO DAILY 05/08/17 10/06/17 History Ibuprofen [Motrin] 800 mg PO DAILY PRN 10/06/17 10/06/17 History QUEtiapine FUMARATE [Seroquel Xr] 400 mg PO HS 10/06/17 10/06/17 History Topiramate [Topamax] 50 mg PO BID 10/06/17 10/06/17 History Allergies Allergy/AdvReac Type Severity Reaction Status Date / Time Penicillins Allergy Unknown Verified 10/06/17 15:17 Physical Exam Vitals: Vital Signs Temp Pulse Pulse Pulse Pulse Pulse Resp 10/07/17 10:39 86 91 87 10/07/17 08:00 97.3 F L 75 18 10/07/17 04:00 16 10/07/17 03:25 98.1 F 75 16 10/06/17 23:11 16 10/06/17 22:55 97.5 F L 78 16 10/06/17 20:00 16 10/06/17 19:14 97.9 F 81 16 10/06/17 17:54 97.7 F 83 16 10/06/17 17:48 98.9 F 86 18 10/06/17 16:20 87 18 10/06/17 15:16 98 18 10/06/17 15:10 102 H 18 10/06/17 15:06 101 H 18 10/06/17 15:03 18 10/06/17 15:00 92 18 10/06/17 14:28 98.7 F 101 H 18 BP BP BP BP BP Pulse Ox 10/07/17 10:39 104/67 99/66 109/69 10/07/17 08:00 102/66 96 10/07/17 04:00 10/07/17 03:25 101/65 98 10/06/17 23:11 10/06/17 22:55 95/58 96 10/06/17 20:00 10/06/17 19:14 112/69 99 10/06/17 17:54 112/65 100 10/06/17 17:48 108/54 98 10/06/17 16:20 103/59 98 10/06/17 15:16 104/58 98 10/06/17 15:10 110/63 97 10/06/17 15:06 108/60 96 10/06/17 15:03 10/06/17 15:00 103/55 99 10/06/17 14:28 108/61 97 Intake and Output 08/25/18 08/26/18 08/26/18 22:59 06:59 14:59 Intake Total 240 Balance 240 Intake: Oral 240 Other: Voiding Method Toilet Toilet Toilet # Voids 1 2 Weight 57.8 kg In general patient is alert and oriented 3 in no apparent distress HEENT head normocephalic and atraumatic Neck is supple no JVD no goiter no lymphadenopathy Chest exam reveals a few scattered crackles no wheezing Cardiac exam reveals regular heart sounds no gallops no murmurs nor rubs Abdomen is soft nontender no organomegaly with normal bowel sounds Extremity exam reveals no edema no cyanosis or clubbing Neurological examination reveals no gross focal deficits Results CBC & Chem 7: 10/06/17 14:40 10/06/17 14:40 Labs: Abnormal Lab Results - Last 24 Hours (Table) 10/06/17 10/06/17 Range/Units 14:40 14:40 Chloride 110 H (98-107) mmol/L Creatinine 1.06 H (0.52-1.04) mg/dL Glucose 102 H (74-99) mg/dL Triglycerides 238 H (<150) mg/dL Cholesterol 255 H (<200) mg/dL LDL Cholesterol, Calc 154 H (0-99) mg/dL Thrombosis Risk Factor Assmnt - Choose All That Apply Each Factor Represents 1 point: Age 41-60 years Other Risk Factors: No Thrombosis Risk Factor Assessment Total Risk Factor Score: 1 Thrombosis Risk Factor Assessment Level: Low Risk Assessment and Plan Plan: #1 episode of chest pain patient is admitted to observation unit serial EKG and cardiac enzymes are ordered cardiology consultation requested #2 underlying history of hypothyroidism maintained on Synthroid #3 underlying history of gastroesophageal reflux disease maintained on omeprazole #4 underlying history of seizure disorder maintained on Topamax, patient also has a vagal nerve stimulator #5 underlying history of diabetes mellitus maintained on metformin #6 underlying history of chronic pain syndrome maintained on oxycodone Medication and labs were reviewed patient is admitted to 24-hour observation cardiology consultation requested Will follow closely during this admission
--- NOTE | 2017-10-07 12:06 | P.DS ---
Providers Date of admission: 10/06/17 16:07 Expected date of discharge: 10/07/17 Attending physician: Van Roblero Consults: 10/06/17 16:07 Consult Physician Urgent Consulting Provider: Finn Daniel Consult Reason/Comments: chest pain Do you want consulting provider notified?: Yes Primary care physician: Zofia Mosqueda [facility] Course: Diagnosis on discharge: #1 episode of chest pain patient is admitted to observation unit serial EKG and cardiac enzymes are ordered cardiology consultation requested #2 underlying history of hypothyroidism maintained on Synthroid #3 underlying history of gastroesophageal reflux disease maintained on omeprazole #4 underlying history of seizure disorder maintained on Topamax, patient also has a vagal nerve stimulator #5 underlying history of diabetes mellitus maintained on metformin #6 underlying history of chronic pain syndrome maintained on oxycodone #7 tobacco abuse patient was counseled in regard to smoking cessation she was given a NicoDerm patch during this admission she was also given a prescription for nicotine patches 21 g change daily at the time of discharge counseling more than 5 minutes regarding smoking cessation. Hospital course: Scout Concepcion is a 52-year-old female who presented to [facility] emergency room with a chief complaint of chest pain, pain started on the night prior to presentation patient describes a pressure sensation in the right side of her chest, she also had some shortness of breath nausea, she denies any diaphoresis, there is no radiation of the pain. Patient stated that she has vagal nerve stimulator for management of seizures, and sating has been changed recently by neurology, she started having chest discomfort soon thereafter. Patient was admitted to 24-hour observation, serial EKG and cardiac enzymes were negative, patient did not have any recurrence of her chest pain, she was evaluated by mattress filler Dr. Daniel, she was cleared for discharge, she will follow-up with Dr. Daniel as outpatient for further evaluation and treatment, she will follow-up also with her neurologist to assess if changing parameters on her vagal nerve stimulator has caused her pain, she will follow-up with her primary care physician Dr. Vicenta Mosqueda. Plan - Discharge Summary Discharge Rx Participant: No New Discharge Prescriptions: New Aspirin 325 mg PO DAILY tab Nicotine 21Mg/24Hr Patch [Habitrol] 1 patch TRANSDERM DAILY patch Nitroglycerin Sl Tabs [Nitrostat] 0.4 mg SUBLINGUAL Q5M PRN tab PRN Reason: Chest Pain Rosuvastatin Calcium [Crestor] 10 mg PO DAILY #30 tab Continue lamoTRIgine [LaMICtal] 200 mg PO BID Topiramate [Topamax] 100 mg PO BID oxyCODONE-APAP 10-325MG [Percocet 10-325 mg] 1 tab PO TID Omeprazole [PriLOSEC] 40 mg PO AC-BRKFST Levothyroxine Sodium [Synthroid] 25 mcg PO DAILY metFORMIN HCL [Glucophage] 500 mg PO HS Fludrocortisone [Florinef] 0.1 mg PO DAILY DULoxetine HCL [Cymbalta] 60 mg PO BID Topiramate [Topamax] 50 mg PO BID QUEtiapine FUMARATE [Seroquel Xr] 400 mg PO HS Ibuprofen [Motrin] 800 mg PO DAILY PRN PRN Reason: Pain Discharge Medication List lamoTRIgine [LaMICtal] 200 mg PO BID 01/04/14 [History] Levothyroxine Sodium [Synthroid] 25 mcg PO DAILY 12/08/16 [History] Omeprazole [PriLOSEC] 40 mg PO AC-BRKFST 12/08/16 [History] Topiramate [Topamax] 100 mg PO BID 12/08/16 [History] metFORMIN HCL [Glucophage] 500 mg PO HS 12/08/16 [History] oxyCODONE-APAP 10-325MG [Percocet 10-325 mg] 1 tab PO TID 12/08/16 [History] DULoxetine HCL [Cymbalta] 60 mg PO BID 05/08/17 [History] Fludrocortisone [Florinef] 0.1 mg PO DAILY 05/08/17 [History] Ibuprofen [Motrin] 800 mg PO DAILY PRN 10/06/17 [History] QUEtiapine FUMARATE [Seroquel Xr] 400 mg PO HS 10/06/17 [History] Topiramate [Topamax] 50 mg PO BID 10/06/17 [History] Aspirin 325 mg PO DAILY tab 10/07/17 [Rx] Nicotine 21Mg/24Hr Patch [Habitrol] 1 patch TRANSDERM DAILY patch 10/07/17 [Rx] Nitroglycerin Sl Tabs [Nitrostat] 0.4 mg SUBLINGUAL Q5M PRN tab 10/07/17 [Rx] Rosuvastatin Calcium [Crestor] 10 mg PO DAILY #30 tab 10/07/17 [Rx] Follow up Appointment(s)/Referral(s): Zofia Mosqueda DO [Primary Care Provider] - 1-2 days
[2017-10-07 12:11] VITALS: TEMP 98.1
== END 2017-10-07 12:54 | disposition home or self-care (01) ==
LOC: EC 14:24 → 3OBS 16:07
PROVIDERS: ADMIT Internal Medicine; ATTEND Internal Medicine
DX: R07.89 Other chest pain (principal); E03.9 Hypothyroidism, unspecified; K21.9 Gastro-esophageal reflux disease without esophagitis; G40.909 Epilepsy, unspecified, not intractable, without status epilepticus; E11.9 Type 2 diabetes mellitus without complications; G89.4 Chronic pain syndrome; F17.200 Nicotine dependence, unspecified, uncomplicated; R06.02 Shortness of breath; R11.0 Nausea; R06.00 Dyspnea, unspecified; R61 Generalized hyperhidrosis; Z79.890 Hormone replacement therapy; Z79.84 Long term (current) use of oral hypoglycemic drugs; Z79.899 Other long term (current) drug therapy; Z79.891 Long term (current) use of opiate analgesic; Z88.0 Allergy status to penicillin; E11.40 Type 2 diabetes mellitus with diabetic neuropathy, unspecified; F41.9 Anxiety disorder, unspecified; F31.9 Bipolar disorder, unspecified; E78.5 Hyperlipidemia, unspecified; Z82.5 Family history of asthma and other chronic lower respiratory diseases; Z82.49 Family history of ischemic heart disease and other diseases of the circulatory system; I95.1 Orthostatic hypotension
CPT/HCPCS: 99285; 36415; 93005; 85379; 80061; 80053; 82550 ×2; 82553 ×2; 83735; 84484 ×2; 85025; 85610; 85730; 71046; G0378 ×2; S4990 ×2

== ENCOUNTER → 2017-10-13 | Outpatient (CLI) | payer MEDICARE, OTHER | END | disposition home or self-care (01) | LOC: LABWHC1 08:12 | PROVIDERS: ATTEND Physician Assistant Medical | DX: Z53.9 Procedure and treatment not carried out, unspecified reason (principal) ==

== ENCOUNTER → 2017-10-29 | Outpatient (CLI) | payer MEDICARE, OTHER ==
[~2017-10-29] MED LIST changes: +COSYNTROPIN 0.25 MG VIAL IM ONE; +COSYNTROPIN 0.25 MG VIAL IVP ONE; -DEXAMETHASONE SOD PHOSPHATE 10 MG/ML 1 ML VIAL IV ONE; -HEPARIN SODIUM,PORCINE 5,000 UNIT/ML 1 ML VIAL SQ ONE; -HYDROmorphone 0.5 MG/0.5 ML SYRINGE IVP PRN; -LACTATED RINGERS 1,000 ML IV SCH; -LIDOCAINE 1% 20 ML VIAL (10MG/ML) FOR IV START INTRADERMA PRN; -MIDAZOLAM 2 MG/2 ML VIAL IV PRN; -MORPHINE SULFATE 2 MG/ML SYRINGE IV PRN; -ONDANSETRON 4 MG/2 ML VIAL IVP ONE; -SCOPOLAMINE 1.5MG/72HR PATCH TRANSDERM ONE; +SODIUM CHLORIDE 0.9% 500 ML in EMPTY BAG 1 BAG IV PRN; -ceFAZolin IN SWFI 2 GM/20 ML SYRINGE IVP ONE; -fentaNYL (PF) 50 MCG/ML 2 ML AMP IV PRN; -metroNIDAZOLE-NS PMX 500 MG in SALINE 1 100ML.BAG IVPB ONE
[2017-10-29 13:01] VITALS: RESP 18
[2017-10-29 13:29] LABS: Albumin 3.8 g/dL (3.5-5.0); Calcium 9.2 mg/dL (8.4-10.2); Potassium 3.8 mmol/L (3.5-5.1); Total Bilirubin 0.2 mg/dL (0.2-1.3); Total Protein 6.6 g/dL (6.3-8.2)
[2017-10-29 15:01] VITALS: BP 118/55; PULSE 93; TEMP 98.4
== END ==
LOC: PROCWHC3 12:44
PROVIDERS: ATTEND Family Medicine
DX: G73.7 Myopathy in diseases classified elsewhere (principal); I95.9 Hypotension, unspecified; I20.9 Angina pectoris, unspecified
CPT/HCPCS: 80053; 82533; 82024; 96374; J0834

== ENCOUNTER → 2017-11-29 | Outpatient (CLI) | payer MEDICARE, OTHER ==
--- NOTE | 2017-11-29 16:55 | NM ---
EXAMINATION TYPE: NM bone scan whole body DATE OF EXAM: 11/29/2017 COMPARISON: CT left knee 09/11/2017 HISTORY: 52-year-old female with left knee pain. Recent development of low back pain. Patient with fa ll in August 2017. Prior left-sided rotator cuff surgery. Technique: Delayed whole-body scanning was performed following the injection of 24.8 mCi Tc 99m MDP. Whole-body anterior and posterior images acquired 3 hours post injection. FINDINGS: There is some mild patchy increased uptake at the left greater than right knee. On the left, increased focal uptake is present particularly along the medial aspect. Correlate for po ssibility of underlying MCL injury/sprain. Additional mild increased uptake at the ankles and hindfeet likely on a degenerative basis. No suspicious distribution of tracer activity to suggest osseous metastatic disease. No abnormal increased uptake seen within the spine. IMPRESSION: Some patchy increased focal uptake in the left greater than right knee. Likely on a degenerative basi s. On the left, increased uptake is particular present along the medial aspect. This could reflect ch anges reactive to prior MCL injury. Clinically correlate.
== END | disposition home or self-care (01) ==
LOC: RADNMMAIN 09:53
PROVIDERS: ATTEND Physical Medicine & Rehabilitation
DX: R93.7 Abnormal findings on diagnostic imaging of other parts of musculoskeletal system (principal); G89.29 Other chronic pain; M54.5 Low back pain
CPT/HCPCS: 78306; A9503

== ENCOUNTER 2017-12-25 13:13 | Emergency (ER) | payer OTHER, MEDICARE ==
[2017-12-25 13:24] VITALS: TEMP 98.1
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
--- NOTE | 2017-12-25 15:16 | XR ---
EXAMINATION TYPE: XR knee complete LT DATE OF EXAM: 12/25/2017 COMPARISON: 09/11/2017 HISTORY: Pain TECHNIQUE: Four views are submitted. FINDINGS: Joint spaces are preserved. Osseous structures are intact. No acute fracture seen. Diffuse osteope siena. There is a bony density adjacent to the medial femoral condyle may be related to age-indetermina te avulsion fracture. Mild narrowing of the medial compartment of the knee joint and patellofemoral j oint suggestive of osteoarthritis. IMPRESSION: 1. There is a bony density adjacent to the medial femoral condyle may be related to a avulsion fractu re of indeterminate age. Correlate with point tenderness. Finding not noted on the recent CT scan 08/14.
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
[2017-12-25] MEDS ORDERED: HYDROcodone/APAP 5-325MG 1 EACH TAB PO STA (15:54)
[2017-12-25 16:06] VITALS: BP 138/67; PULSE 80; RESP 16
== END 2017-12-25 17:09 | disposition home or self-care (01) ==
LOC: EC 13:13
DX: S89.92XA Unspecified injury of left lower leg, initial encounter (principal); S00.211A Abrasion of right eyelid and periocular area, initial encounter; F31.9 Bipolar disorder, unspecified; F41.9 Anxiety disorder, unspecified; G40.909 Epilepsy, unspecified, not intractable, without status epilepticus; F17.200 Nicotine dependence, unspecified, uncomplicated; Z79.84 Long term (current) use of oral hypoglycemic drugs; Z79.899 Other long term (current) drug therapy; Z88.0 Allergy status to penicillin; Z88.8 Allergy status to other drugs, medicaments and biological substances; V43.51XA Car driver injured in collision with sport utility vehicle in traffic accident, initial encounter; Y92.410 Unspecified street and highway as the place of occurrence of the external cause
CPT/HCPCS: 73562; 72125; 70450; 99285; L1830

== ENCOUNTER → 2018-01-01 | Outpatient (CLI) | payer MEDICARE, OTHER ==
--- NOTE | 2018-01-01 12:59 | CT ---
EXAMINATION TYPE: CT urogram wo/w con DATE OF EXAM: 01/01/2018 HISTORY: Hematuria, LLQ pain CT DLP: 946.2mGycm Automated Exposure Control for Dose Reduction was Utilized. CONTRAST: CT scan of the abdomen and pelvis is performed without oral and without and with IV Contrast, patient injected with 100 mL of Isovue 300. Urogram protocol. Three-D reconstructed images are created on in dependent workstation and reviewed. COMPARISON: None FINDINGS: KUB: Noncontrast images show single 2 mm calculus lower pole calyx right kidney coronal image 75. The re is no left-sided nephrolithiasis. Postcontrast images show symmetric cortical medullary uptake and excretion from both kidneys. There is focal cortical scarring lateral aspect mid to lower pole level left kidney seen best coronal image 87 series 13. No concerning solid or cystic renal mass is identi fied in either kidney. There is satisfactory contrast opacification of both ureters without hydrouret er or filling calculus. Bladder shows satisfactory distention without intraluminal calculus or suspic ious intraluminal mass. Few scattered pelvic phleboliths are seen inferiorly. LUNG BASES: Minimal pleural thickening posterior left lung base. LIVER/GB: Cholecystectomy clips are present. PANCREAS: No significant abnormality is seen. SPLEEN: No significant abnormality is seen. ADRENALS: No significant abnormality is seen. KIDNEYS: No significant abnormality is seen. BOWEL: Stomach is poorly distended and thus suboptimally evaluated there is some prominence of the du odenal sweep with borderline abnormal dilatation of proximal jejunal loops in the left upper to mid a bdomen measuring up to 2.8 cm in diameter. There is slight swirling of jejunal loops in the left uppe r to midabdomen. Distal to this remainder small bowel loops show no suspicious dilatation. Mild wall thickening in the cecum, transverse, sigmoid, and left colon is seen. Finding presumed product of poo r distention, mild colitis should be excluded clinically. No suspicious bowel dilatation is noted. UTERUS/ADNEXA: Uterus is surgically absent or markedly atrophic. LYMPH NODES: No greater than 1cm abdominal or pelvic lymph nodes are appreciated. OSSEOUS STRUCTURES: Mild to moderate joint space loss in both hips is present. OTHER: Mild to moderate mixed plaque in aorta extends into branch vessels. IMPRESSION: 1. There is 2 mm calculus lower pole level right kidney. No suspicious masses or obstructing ureter c alculi identified bilaterally. 2. Prominent duodenal sweep and proximal jejunal loops, cannot exclude internal hernia as there is so me twisting of mesenteric vessels in the left upper to midabdomen noted. Overall no complete bowel ob struction is felt present.
== END | disposition home or self-care (01) ==
LOC: RADCTMAIN 09:32
PROVIDERS: ATTEND Family Medicine
DX: N20.0 Calculus of kidney (principal); K56.2 Volvulus
CPT/HCPCS: 82565; 84520; 74178; 74400; Q9967

== ENCOUNTER → 2018-08-28 | Outpatient (CLI) | payer MEDICARE, OTHER ==
--- NOTE | 2018-08-29 11:42 | MM ---
Reason for exam: screening (asymptomatic). Last mammogram was performed 1 year and 2 months ago. Physical Findings: A clinical breast exam by your physician is recommended on an annual basis and results should be correlated with mammographic findings. MG Screening Mammo w CAD Bilateral CC and MLO view(s) were taken. Prior study comparison: June 18, 2017, bilateral MG screening mammo w CAD. May 18, 2016, bilateral MG diagnostic mammo w CAD ANTONIA. The breast tissue is heterogeneously dense. This may lower the sensitivity of mammography. Finding: There are typically benign round, regional calcifications in the posterior position of the left breast. There is no discrete abnormality. Left axillary pacemaker redemonstrated. ASSESSMENT: Benign, BI-RAD 2 RECOMMENDATION: Routine screening mammogram of both breasts in 1 year.
== END | disposition home or self-care (01) ==
LOC: RADMAMWWP 06:57
PROVIDERS: ATTEND Family Medicine
DX: Z12.31 Encounter for screening mammogram for malignant neoplasm of breast (principal)
CPT/HCPCS: 77067

== ENCOUNTER 2019-01-10 07:46 | Emergency (ER) | payer MEDICARE, OTHER ==
[2019-01-10] MEDS ORDERED: KETOROLAC 30 MG/ML 1 ML VIAL IVP STA (08:09)
[2019-01-10] MEDS ORDERED: ONDANSETRON 4 MG/2 ML VIAL IVP STA (08:09)
--- NOTE | 2019-01-10 08:45 | ED ---
Chest Pain HPI - General Chief Complaint: Chest Pain Stated Complaint: Chest pain Time Seen by Provider: 01/10/19 08:00 Source: patient, RN notes reviewed Limitations: no limitations - History of Present Illness Initial Comments: This is a 53-year-old female with a history of multiple medical issues including a cholecystectomy in the past who states she had the onset about one hour prior to arrival of lower chest and epigastric pain very severe in nature initially and 8/10 now she states is 10/10 in severity sharp in nature nonradiating associated with sweats and some nausea. She states she was to have an a CT myelogram of the lumbar spine done this morning at 8 AM but could not make it because the pain. No diarrhea no constipation reported the patient does have a prior history of colitis in addition to other medical issues except be gleaned from the chart. MD Complaint: chest pain, other - Related Data Home Medications Medication Instructions Recorded Confirmed lamoTRIgine [LaMICtal] 200 mg PO BID 01/04/14 01/10/19 Levothyroxine Sodium [Synthroid] 25 mcg PO DAILY 12/08/16 01/10/19 Omeprazole [PriLOSEC] 40 mg PO DAILY 12/08/16 01/10/19 Topiramate [Topamax] 100 mg PO BID 12/08/16 01/10/19 oxyCODONE-APAP 10-325MG [Percocet 1 tab PO TID 12/08/16 01/10/19 10-325 mg] DULoxetine HCL [Cymbalta] 60 mg PO HS 05/08/17 01/10/19 Fludrocortisone [Florinef] 0.2 mg PO HS 05/08/17 01/10/19 Ibuprofen [Motrin] 800 mg PO DAILY PRN 10/06/17 01/10/19 Topiramate [Topamax] 50 mg PO BID 10/06/17 01/10/19 Atorvastatin [Lipitor] 20 mg PO QAM 12/25/18 01/10/19 QUEtiapine FUMARATE [QUEtiapine 300 mg PO HS 01/10/19 01/10/19 FUMARATE ER] Allergies Allergy/AdvReac Type Severity Reaction Status Date / Time Penicillins Allergy Unknown Verified 01/10/19 09:38 gabapentin [From Neurontin] AdvReac Nausea Verified 01/10/19 09:38 pregabalin [From Lyrica] AdvReac Nausea Verified 01/10/19 09:38 Review of Systems ROS Statement: Those systems with pertinent positive or pertinent negative responses have been documented in the HPI. ROS Other: All systems not noted in ROS Statement are negative. Past Medical History Past Medical History: Seizure Disorder Additional Past Medical History / Comment(s): colitis, neuropathy, chronic back pain x 2 years History of Any Multi-Drug Resistant Organisms: None Reported Past Surgical History: Hysterectomy, Orthopedic Surgery Additional Past Surgical History / Comment(s): vagus nerve stimulator, eye surg peg, left shoulders Past Anesthesia/Blood Transfusion Reactions: No Reported Reaction Past Psychological History: Anxiety, Bipolar, Depression Smoking Status: Current every day smoker Past Alcohol Use History: None Reported Past Drug Use History: None Reported - Past Family History Mother Family Medical History: Congestive Heart Failure (CHF), COPD Father Family Medical History: Congestive Heart Failure (CHF), Coronary Artery Disease (CAD) General Exam - General Exam Comments Initial Comments: this is a well-developed sec appearing female who is awake alert oriented 3 Limitations: no limitations General appearance: alert, anxious, in distress Head exam: Present: atraumatic, normocephalic, normal inspection Eye exam: Present: normal appearance, PERRL, EOMI. Absent: scleral icterus, conjunctival injection, periorbital swelling ENT exam: Present: normal exam, mucous membranes moist Neck exam: Present: normal inspection. Absent: tenderness, meningismus, lym phadenopathy Respiratory exam: Present: normal lung sounds bilaterally. Absent: respiratory distress, wheezes, rales, rhonchi, stridor Cardiovascular Exam: Present: regular rate, normal rhythm, normal heart sounds. Absent: systolic murmur, diastolic murmur, rubs, gallop, clicks GI/Abdominal exam: Present: soft, tenderness, normal bowel sounds, other (Tenderness to the epigastrium to palpation no guarding or rebound). Absent: distended, guarding, rebound, rigid Rectal exam: Present: deferred Extremities exam: Present: normal inspection, full ROM, normal capillary refill. Absent: tenderness, pedal edema, joint swelling, calf tenderness Back exam: Present: normal inspection Neurological exam: Present: alert, oriented X3, CN II-XII intact Psychiatric exam: Present: normal affect, anxious Skin exam: Present: warm, dry, intact, normal color. Absent: rash Course Vital Signs 01/10/19 01/10/19 01/10/19 07:48 09:24 09:28 Temperature 98.1 F Pulse Rate 92 90 87 Respiratory 16 18 18 Rate Blood Pressure 115/63 120/63 120/63 O2 Sat by Pulse 97 100 100 Oximetry 01/10/19 01/10/19 01/10/19 09:30 10:00 11:00 Temperature Pulse Rate 81 86 79 Respiratory 18 27 H 18 Rate Blood Pressure 120/63 117/74 138/57 O2 Sat by Pulse 100 100 97 Oximetry 01/10/19 01/10/19 01/10/19 11:45 12:00 12:30 Temperature Pulse Rate 90 89 85 Respiratory 18 18 16 Rate Blood Pressure 128/82 128/82 128/64 O2 Sat by Pulse 98 97 98 Oximetry Chest Pain MDM - MDM Patient did present with complaints of lower sternal pain and upper abdominal pain. She did finally get relief after GI cocktail. The patient have elevated d-dimer a CT negative. I did discuss the findings with her apparently the patient also is been weaned suddenly off of her antidepressant and sleeping medication. She will be discharged she is a follow-up with her doctor and reschedule her CAT scan she was supposed to have done this morning. Disposition Clinical Impression: Atypical chest pain, Abdominal pain, Acute gastritis Disposition: HOME SELF-CARE Condition: Good Instructions (If sedation given, give patient instructions): Abdominal Pain (ED), Gastritis (ED) Additional Instructions: Continue with her current medication, follow-up with her doctor, reschedule your outpatient lumbar CAT scan. Is patient prescribed a controlled substance at d/c from ED?: No Referrals: Zofia Mosqueda DO [Primary Care Provider] - 1-2 days
[2019-01-10 08:51] LABS: Basophils # (A) 0.1 k/uL (0-0.2); Basophils % (A) 1 %; Eosinophils # (A) 0.1 k/uL (0-0.7); Eosinophils % (A) 2 %; HCT 43.3 % (34.0-46.0); HGB 13.9 gm/dL (11.4-16.0); Lymphocytes % (A) 24 %; MCH 29.3 pg (25.0-35.0); MCHC 32.1 g/dL (31.0-37.0); MCV 91.4 fL (80.0-100.0); Mean Platelet Volume 7.1; Monocytes # (A) 0.4 k/uL (0-1.0); Monocytes % (A) 5 %; Neutrophils # (A) 5.5 k/uL (1.3-7.7); Neutrophils % (A) 67 %; Platelet Count 265 k/uL (150-450); RBC 4.73 m/uL (3.80-5.40); RDW 13.2 % (11.5-15.5); WBC 8.1 k/uL (3.8-10.6)
--- NOTE | 2019-01-10 08:52 | XR ---
EXAMINATION TYPE: XR chest 2V DATE OF EXAM: 01/10/2019 COMPARISON: Chest is 01/07/2017. HISTORY: Chest pain and nausea today. TECHNIQUE: Frontal and lateral views of the chest are obtained. FINDINGS: Stimulator device redemonstrated over the anterior chest wall ascending left neck. Overlyi ng EKG leads are redemonstrated. There is no focal air space opacity, pleural effusion, or pneumothor ax seen. The cardiac silhouette size is upper limits of normal on current study. Surgical changes le ft humeral head again seen.. IMPRESSION: No acute pulmonary process. Increased cardiac prominence noted.
[2019-01-10 08:57] LABS: Albumin 3.9 g/dL (3.5-5.0); Calcium 9.5 mg/dL (8.4-10.2); Potassium 3.8 mmol/L (3.5-5.1); Total Bilirubin 0.4 mg/dL (0.2-1.3)
[2019-01-10] MEDS ORDERED: fentaNYL (PF) 50 MCG/ML 2 ML AMP IVP PRN (08:58)
[2019-01-10 09:18] LABS: INR 0.8 (<1.2); Partial Thromboplastin Time 23.8 sec (22.0-30.0); Prothrombin Time 9.4 sec (9.0-12.0)
[2019-01-10] MEDS ORDERED: DICYCLOMINE 10 MG/ML 2 ML AMP IM STA (09:37)
[2019-01-10 09:59] LABS: D-Dimer 0.62 mg/L FEU (<0.60)
[2019-01-10] MEDS ORDERED: HYDROmorphone 1 MG/ML 1 ML SYRINGE IVP STA (10:40)
--- NOTE | 2019-01-10 11:48 | CT ---
EXAMINATION TYPE: CT angio chest DATE OF EXAM: 01/10/2019 COMPARISON: None HISTORY: Chest pain with elevated d-dimer CONTRAST: CT chest with contrast and 3D reconstruction with MIP imaging is performed with IV Contrast, patient injected with 100 mL of Isovue 300. Contrast-enhanced CT of the chest was performed through the course of the pulmonary arteries with jany g and mediastinal window settings submitted. 3D reconstruction with MIP imaging was also performed. PULMONARY ARTERIES: The pulmonary arteries and their major tributaries are patent. I do not see jarad dence for sizable filling defect to suggest pulmonary embolic process. LUNGS: The lungs are clear and free of infiltrate. No evidence for atelectasis. No pulmonary nodule or mass is detected. No pleural effusion. MEDIASTINUM: Thoracic aorta is of normal caliber,however, evaluation is limited given timing of the contrast bolus. If there is concern for thoracic aortic pathology consider ERIN. Correlate clinicall y . The heart is not enlarged. No evidence for mediastinal mass. No mediastinal lymph nodes greater than 1cm. HILAR STRUCTURES: No evidence for mass. No hilar lymph nodes greater than 1 cm. UPPER ABDOMEN: No significant abnormality is seen. IMPRESSION: 1. No evidence for Pulmonary embolism at this time.
[2019-01-10] MEDS ORDERED: MAG HYDROX/AL HYDROX/SIMETH 30 ML, HYOSCYAMINE ELIXIR 10 ML, LIDOCAINE VISCOUS 2% 10 ML PO STA ×3 (12:14)
[2019-01-10 12:57] VITALS: RESP 16
[2019-01-10 14:09] VITALS: BP 126/68; PULSE 81; TEMP 98.2
== END 2019-01-10 14:08 | disposition home or self-care (01) ==
LOC: EC 07:46
DX: K29.00 Acute gastritis without bleeding (principal); R07.89 Other chest pain; R79.89 Other specified abnormal findings of blood chemistry; G40.909 Epilepsy, unspecified, not intractable, without status epilepticus; G89.29 Other chronic pain; G62.9 Polyneuropathy, unspecified; F31.9 Bipolar disorder, unspecified; F41.9 Anxiety disorder, unspecified; F17.200 Nicotine dependence, unspecified, uncomplicated; Z79.890 Hormone replacement therapy; Z79.899 Other long term (current) drug therapy; Z88.0 Allergy status to penicillin; Z88.8 Allergy status to other drugs, medicaments and biological substances; Z82.49 Family history of ischemic heart disease and other diseases of the circulatory system; Z90.49 Acquired absence of other specified parts of digestive tract
CPT/HCPCS: 36415; 71046; 71275; 80053; 82550; 83690; 83735; 83880; 84484; 85025; 85379; 85610; 85730; 93005; 96372; 96374; 96375; 99285

== ENCOUNTER 2019-01-31 07:56 | Day surgery (SDC) | payer MEDICARE, OTHER ==
[~2019-01-31 07:56] MED LIST changes: -COSYNTROPIN 0.25 MG VIAL IM ONE; -COSYNTROPIN 0.25 MG VIAL IVP ONE; +PREMYELOGRAM MEDICATION REVIEW 1 EACH MISC PO ONE; -SODIUM CHLORIDE 0.9% 500 ML in EMPTY BAG 1 BAG IV PRN
[2019-01-31 08:25] VITALS: TEMP 98.1
[2019-01-31] MEDS ORDERED: DIAZEPAM 5 MG TAB PO STA (08:32)
--- NOTE | 2019-01-31 09:59 | FL ---
EXAMINATION TYPE: FL myelogram lumbosacral DATE OF EXAM: 01/31/2019 9:49 AM HISTORY: Right Lower extremity pain and numbness. 1min 55sec fl time, 10ml isovue 300M injected Informed consent was obtained and all the patient's questions were answered. The L3-L4 level was loc alized under fluoroscopy. Standard sterile technique was utilized as well as appropriate local anest hesia 1% Lidocaine and sodium bicarbonate. Spinal needle was introduced into the thecal sac under fl uoroscopic guidance and 10 mls of Omni 240 was injected. The patient tolerated the procedure well an d left the department in stable condition. CT myelography is to follow. IMPRESSION: Successful myelography lumbar spine
--- NOTE | 2019-01-31 10:03 | CT ---
EXAMINATION TYPE: CT lumbar spine w con DATE OF EXAM: 01/31/2019 COMPARISON: HISTORY: Myelogram CT DLP: 405.9 mGycm Automated exposure control for dose reduction was used. CONTRAST: CT scan of the lumbar is performed with IV Contrast, patient injected with 10 mL of Isovue M300. Enhanced CT of the lumbar spine was performed. Bone and soft tissue window settings are submitted as well as coronal and sagittal reconstructions. L1-L2: Normal disc space height. No disc herniation protrusion or central stenosis. No facet joint arthropathy. No evidence for foraminal encroachment. L2-L3: Normal disc space height. No disc herniation protrusion or central stenosis. No facet joint arthropathy. No evidence for foraminal encroachment. L3-L4: Normal disc space height. No disc herniation protrusion or central stenosis. No facet joint arthropathy. No evidence for foraminal encroachment. L4-L5: Normal disc space height. No disc herniation protrusion or central stenosis. No facet joint arthropathy. No evidence for foraminal encroachment. L5-S1: Normal disc space height. No disc herniation protrusion or central stenosis. No facet joint arthropathy. No evidence for foraminal encroachment. IMPRESSION: Normal CT myelogram
[2019-01-31 13:10] VITALS: BP 101/60; PULSE 99; RESP 1
== END 2019-01-31 13:17 | disposition home or self-care (01) ==
LOC: RADPROMAIN 07:56
PROVIDERS: ATTEND Physical Medicine & Rehabilitation
DX: M47.27 Other spondylosis with radiculopathy, lumbosacral region (principal); M46.1 Sacroiliitis, not elsewhere classified; M51.17 Intervertebral disc disorders with radiculopathy, lumbosacral region; M19.042 Primary osteoarthritis, left hand; M19.041 Primary osteoarthritis, right hand; M17.12 Unilateral primary osteoarthritis, left knee; Z79.891 Long term (current) use of opiate analgesic; F32.9 Major depressive disorder, single episode, unspecified; G40.909 Epilepsy, unspecified, not intractable, without status epilepticus; E03.9 Hypothyroidism, unspecified; G62.9 Polyneuropathy, unspecified; F17.210 Nicotine dependence, cigarettes, uncomplicated; G89.4 Chronic pain syndrome; G57.70 Causalgia of unspecified lower limb; Z79.890 Hormone replacement therapy; Z79.899 Other long term (current) drug therapy; Z88.0 Allergy status to penicillin; Z88.8 Allergy status to other drugs, medicaments and biological substances; Z90.710 Acquired absence of both cervix and uterus; Z98.890 Other specified postprocedural states; Z96.9 Presence of functional implant, unspecified
CPT/HCPCS: 62304; 72132

== ENCOUNTER → 2019-08-28 | Outpatient (CLI) | payer MEDICARE, OTHER ==
--- NOTE | 2019-08-28 11:43 | CT ---
EXAMINATION TYPE: CT chest abdomen wo con DATE OF EXAM: 08/28/2019 COMPARISON: Chest 01/10/2019 HISTORY: 54-year-old female Right sided flank pain. BB placed on right sided mass. M54.5 low back pa in, M54.6 pain T-spine, M79.18 Myalgia TECHNIQUE: Contiguous axial scanning of the chest and abdomen without IV contrast. Coronal and sagitt al reconstructions performed. CT DLP: 345.5 mGycm Automated exposure control for dose reduction was used. FINDINGS: CHEST: Heart normal size without pericardial effusion. Aorta normal caliber with conventional arch vessel branching anatomy. No thoracic lymphadenopathy by CT size criteria. Some strandy anterior right midlung atelectasis. 4 mm left basilar pulmonary nodule seems to have been partially visualized back to 01/01/2018 CT. Thi s suggests a benign etiology. No consolidation or pleural effusion. Generator device along the left anterior chest wall. ABDOMEN: Noncontrast appearance of the liver, adrenal glands, left kidney, spleen, and pancreas appear within normal limits. A couple nonobstructive 4 mm right renal calculi. No hydronephrosis. Mild scattered atherosclerotic calcifications abdominal aorta without aneurysm. No dilated small bowel, free fluid, or free air. No mesenteric or retroperitoneal lymphadenopathy. Mild stool burden. Normal appendix. No pericolonic inflammatory change. Pelvis not imaged. There is a palpable marker placed along the right posterolateral upper abdomen. Just underlying this region overlying the superficial fascia, is a tiny focus of haziness in the deep subcutaneous fat, ax ial image 60. There seems to be an associated tiny subcutaneous vessel, refer to coronal images 58 th rough 60. Otherwise, no discrete masses identified. BONES: No osseous destructive process. IMPRESSION: 1. PALPABLE MARKER PLACED ALONG THE POSTEROLATERAL RIGHT UPPER ABDOMEN. THERE IS AN UNDERLYING TINY F OCUS OF HAZINESS IN THE DEEP SUBCUTANEOUS FAT (SO SMALL THAT IT WAS ONLY IDENTIFIED BECAUSE OF THE PA LPABLE MARKER) AND A POSSIBLE TINY ASSOCIATED SUPERFICIAL VEIN. CONSIDER A SMALL VESSEL SUPERFICIAL T HROMBOPHLEBITIS OR A SMALL FOCUS OF CELLULITIS. 2. A COUPLE NONOBSTRUCTIVE RIGHT RENAL CALCULI.
--- NOTE | 2019-08-28 12:24 | US ---
EXAMINATION TYPE: US abdomen limited DATE OF EXAM: 08/28/2019 COMPARISON: CT same date CLINICAL HISTORY: M54.5 low back pain,M54.6 pain tspine,M79.18 Myalg. Per order, right flank palpable soft tissue exam. Patient states she feels a lump with pain at right flank. Patient states also ge tting a CT. Area of concern scanned. No discrete abnormality identified with certainty. IMPRESSION: See dictated report CT scan. No abnormality identified with certainty.
== END | disposition home or self-care (01) ==
LOC: RADUSWWP 09:46
PROVIDERS: ATTEND Orthopaedic Surgery Orthopaedic Surgery of the Spine
DX: N20.0 Calculus of kidney (principal)
CPT/HCPCS: 71250; 74150; 76705

== ENCOUNTER → 2019-10-02 | Outpatient (CLI) | payer MEDICARE, OTHER ==
--- NOTE | 2019-10-02 14:11 | CT ---
EXAMINATION TYPE: CT brain wo con DATE OF EXAM: 10/02/2019 HISTORY: headaches, dizziness CT DLP: 788.8 mGycm. Automated Exposure Control for Dose Reduction was Utilized. TECHNIQUE: CT scan of the head is performed without contrast. COMPARISON: CT brain December 25, 2017. FINDINGS: There is no acute intracranial hemorrhage or midline shift identified. Ventricles and sul ci within normal limits in size for patient's age. Hensley-white matter differentiation fairly well-main tained. Stable small mucous retention cyst or polyp in the left ethmoid sinuses axial image 5. The g lobes are intact and the visualized sinuses otherwise are clear. IMPRESSION: No acute intracranial hemorrhage or midline shift. No significant change from prior stud y.
--- NOTE | 2019-10-02 16:00 | CT ---
EXAMINATION TYPE: CT angio head neck DATE OF EXAM: 10/02/2019 COMPARISON: CT brain same date HISTORY: 54-year-old female headache, dizziness TECHNIQUE: Contiguous axial scanning of the head and neck performed with IV Contrast, patient injecte d with 65 mL of Isovue 370. Coronal/sagittal MIP reconstructions performed. 3-D reconstructions gener ated on a dedicated independent workstation. CT DLP: 511.9 mGycm Automated exposure control for dose reduction was used. FINDINGS: NECK: Left anterior chest wall generator device. Suture anchors at the left humeral head from prior cuff re pair. Vertebral arteries are codominant and patent throughout the course. The right common and internal carotid arteries are widely patent. A segment of the proximal left common carotid artery is nondiagnostic due to extensive beam hardening artifact. Given satisfactory opacification of the common carotid artery above this level, no signifi cant stenosis is suspected. Some surgical clips in the upper left neck anterior to the carotid space. The left internal carotid a rtery is patent. HEAD: The vertebral and basilar arteries are patent. The internal carotid arteries are patent. The anterior and posterior circulations appear patent. No aneurysmal change is seen. Dural venous sinuses are patent. IMPRESSION: 1. NECK: DENSE BEAM HARDENING ARTIFACT DEGRADING ASSESSMENT OF THE PROXIMAL LEFT COMMON CAROTID ARTER Y NONDIAGNOSTIC. NO SIGNIFICANT NARROWING IS SUSPECTED. THE REMAINDER OF THE CAROTID AND VERTEBRAL AR TERIES OF THE NECK ARE WIDELY PATENT. SOME SURGICAL CLIPS INCIDENTALLY NOTED IN THE LEFT UPPER NECK. CLINICALLY CORRELATE. 2. HEAD: NO LARGE VESSEL INTRACRANIAL ARTERIAL OCCLUSION, SIGNIFICANT STENOSIS, OR ANEURYSMAL CHANGE IS SEEN.
== END | disposition home or self-care (01) ==
LOC: RADCTMAIN 12:51
PROVIDERS: ATTEND Psychiatry & Neurology Neurology
DX: R51 Headache (principal); I65.22 Occlusion and stenosis of left carotid artery; R42 Dizziness and giddiness; R90.82 White matter disease, unspecified
CPT/HCPCS: 70496; 70450; 70498; Q9967

== ENCOUNTER → 2020-05-24 | Outpatient (CLI) | payer MEDICARE, OTHER ==
--- NOTE | 2020-05-24 07:52 | XR ---
EXAMINATION TYPE: XR chest 2V DATE OF EXAM: 05/24/2020 COMPARISON: Chest x-ray January 10, 2019. CT chest August 28, 2019. HISTORY: Shortness of breath TECHNIQUE: Frontal and lateral views of the chest are obtained. FINDINGS: There is no new suspicious focal air space opacity, pleural effusion, or pneumothorax seen . The cardiac silhouette size remains within normal limits. Surgical changes left humeral head level redemonstrated. Overlying left anterior stimulator device again seen. IMPRESSION: No acute cardiopulmonary process. No significant change from prior studies.
== END | disposition home or self-care (01) ==
LOC: RADXRMAIN 06:29
PROVIDERS: ATTEND Physician Assistant Medical
DX: R06.02 Shortness of breath (principal)
CPT/HCPCS: 71046

== ENCOUNTER → 2020-05-27 | Outpatient (CLI) | payer MEDICARE, OTHER ==
[2020-05-27 10:58] LABS: HCT 40.3 % (37.2-46.3); HGB 12.1 g/dL (12.0-15.0); MCH 26.9 pg (27.0-32.0); MCV 89.8 fL (80.0-97.0); Mean Platelet Volume 10.5 fL (9.5-12.2); Platelet Count 280 X 10*3/uL (140-440); RBC 4.49 X 10*6/uL (4.10-5.20); RDW 15.4 % (11.5-14.5); WBC 8.35 X 10*3/uL (4.50-10.00)
[2020-05-27 12:12] LABS: T4, Free (Free Thyroxine) 0.9 ng/dL (0.80-1.80)
[2020-05-27 13:15] LABS: African American GFR (CKD) 84.6 (60.0-200.0); Albumin 4.4 g/dL (3.80-4.90); Albumin/Globulin Ratio 2.32 (1.60-3.17); Anion Gap 4.2 mmol/L (4.00-12.00); BUN/Creat Ratio 13.33 Ratio (12.00-20.00); Calcium 9.3 mg/dL (8.7-10.3); Carbon Dioxide 23.8 mmol/L (21.6-31.8); Globulin 1.9 g/dL (1.6-3.3); Potassium 4.1 mmol/L (3.5-5.5); Total Bilirubin 0.1 mg/dL (0.3-1.2); Total Protein 6.3 g/dL (6.2-8.2)
== END | disposition home or self-care (01) ==
LOC: LABWHC1 07:01
PROVIDERS: ATTEND Physician Assistant Medical
DX: I10 Essential (primary) hypertension (principal); M19.29 Secondary osteoarthritis, other specified site; R53.83 Other fatigue
CPT/HCPCS: 36415; 80053; 82533; 84439; 84443; 84481; 85027

== ENCOUNTER → 2020-09-06 | Outpatient (CLI) | payer MEDICARE, OTHER ==
--- NOTE | 2020-09-06 14:42 | NM ---
EXAMINATION TYPE: NM bone scan whole body DATE OF EXAM: 09/06/2020 COMPARISON: 11/29/2017 HISTORY: 55-year-old female M54.5 LBP, M54.6 Thoracic spine pain, M79.18 Myalgia. Mild right lateral rib bony protrusion, significant right rib pain. TECHNIQUE: Delayed whole-body scanning was performed following the injection of 22.1 mCi Tc 99m MDP. Images acquired 3 hours post injection. FINDINGS: Some increased activity is noted at the shoulders, elbows, wrists, finger joints, knees, and hindfoot and midfoot regions. No discrete bony abnormality seen along the lateral aspect of the right rib cag e. IMPRESSION: Mild increased activity throughout various joints including the wrists, fingers, elbows, and knees. C orrelate clinically to exclude a systemic arthropathy such as RA. No suspicious distribution of activ ity to suggest osseous metastatic disease. No abnormal activity seen along the spine or along the lat eral aspect of the right ribs suggest a rib fracture.
== END | disposition home or self-care (01) ==
LOC: RADNMMAIN 10:24
PROVIDERS: ATTEND Orthopaedic Surgery Orthopaedic Surgery of the Spine
DX: M25.9 Joint disorder, unspecified (principal)
CPT/HCPCS: 78306; A9503

== ENCOUNTER → 2020-11-17 | Outpatient (CLI) | payer MEDICARE, OTHER ==
--- NOTE | 2020-11-17 09:00 | XR ---
EXAMINATION TYPE: XR foot complete bilateral DATE OF EXAM: 11/17/2020 COMPARISON: None HISTORY: Pain TECHNIQUE: Bilateral feet 3 views each FINDINGS: Left foot: No acute fracture or dislocation is evident. Soft tissues appear normal. Right foot: No acute fracture or dislocation is evident. Soft tissues appear normal. Achilles tendon calcaneal heel spur is noted. IMPRESSION: 1. Achilles tendon calcaneal heel spur right calcaneus. 2. Bilateral feet are otherwise unremarkable
--- NOTE | 2020-11-17 09:02 | XR ---
EXAMINATION TYPE: XR ankle complete bilateral DATE OF EXAM: 11/17/2020 COMPARISON: None HISTORY: Pain TECHNIQUE: Bilateral ankles 3 views each FINDINGS: Right ankle: Achilles tendon calcaneal heel spur is present. The ankle mortise is intact. Soft tissue s are normal. No acute fracture or dislocation is evident. Left ankle: Ankle mortise is intact. Soft tissues are normal. No acute fracture or dislocation is jarad dent. IMPRESSION: 1. Right calcaneal Achilles tendon heel spur. 2. Bilateral ankles are otherwise unremarkable.
--- NOTE | 2020-11-17 09:03 | XR ---
EXAMINATION TYPE: XR lumbosacral spine min 4V DATE OF EXAM: 11/17/2020 COMPARISON: None HISTORY: Neuropathy TECHNIQUE: 5 view lumbar spine FINDINGS: There are 5 lumbar-type vertebral bodies. The pedicles are intact. No spondylolytic defects are evident. Some early facet degenerative change may be present L4-5 and L5-S1. Disc heights are pr eserved. Vertebral body heights are preserved. Alignment is normal. IMPRESSION: 1. Minimal early facet changes lower lumbar spine. 2. Lumbar spine is otherwise unremarkable.
[2020-11-18 07:35] LABS: % Iron Saturation 4.68 (12.00-45.00); Ferritin 7.6 ng/mL (10.0-291.0); T4, Free (Free Thyroxine) 0.99 ng/dL (0.800-1.800)
== END | disposition home or self-care (01) ==
LOC: LABWHC1 07:00
PROVIDERS: ATTEND Psychiatry & Neurology Neurology
DX: M77.31 Calcaneal spur, right foot (principal); M77.32 Calcaneal spur, left foot; G62.9 Polyneuropathy, unspecified; M47.896 Other spondylosis, lumbar region
CPT/HCPCS: 36415; 72110; 82607; 82728; 83519; 83540; 83550; 84165; 84207; 84439; 84443; 84481

== ENCOUNTER → 2022-05-11 | Outpatient (CLI) | payer MEDICARE, OTHER ==
--- NOTE | 2022-05-11 15:24 | CT ---
EXAMINATION TYPE: CT chest abdomen w con DATE OF EXAM: 05/11/2022 COMPARISON: INDICATION: Rt side lump on rib cage DLP: 509.70 mGycm, Automated exposure control for dose reduction was used. CONTRAST: 90 mL of Isovue 370. Study performed with Oral Contrast TECHNIQUE: Axial images were obtained from above the lung apex to the iliac crest in the axial plane at 5 mm thick sections. Reconstructed images are reviewed on the computer in the coronal plane. FINDINGS: CT chest: LUNGS: No suspicious infiltrates are evident. No masses or nodules. Portion of the thyroid visualized is normal. Subglottic airway is unremarkable. Descending thoracic a jean at the level of the main pulmonary artery is 2.1 cm. Main pulmonary artery bifurcation is 2.1 cm . No suspicious mediastinal or hilar adenopathy is evident. CT ABDOMEN: Liver: Normal Spleen: Normal Pancreas: Normal Adrenal glands: The adrenal glands are normal. Gallbladder: Not identified. Kidneys: No masses are evident. No hydronephrosis is present. No cysts are present. Delayed images were obtained through the kidneys, which remain unremarkable. Aorta: Vascular calcification is within the aorta. Inferior vena cava: Normal. CT PELVIS: Loops of bowel within the abdomen and upper pelvis are normal. There are loops of bowel which are incompletely distended or lack oral contrast limiting their evaluation. Appendix: Normal as visualized. IMPRESSIONS: 1. No suspicious CT changes thorax. 2. CT abdomen as visualized appears unremarkable. 3. No abnormality to account for right rib or flank swelling.
== END | disposition home or self-care (01) ==
LOC: RADCTMAIN 10:16
PROVIDERS: ATTEND Family Medicine
DX: R19.00 Intra-abdominal and pelvic swelling, mass and lump, unspecified site (principal); R06.09 Other forms of dyspnea
CPT/HCPCS: 71260; 74160; Q9967

== ENCOUNTER → 2022-05-26 | Outpatient (CLI) | payer MEDICARE, OTHER ==
--- NOTE | 2022-05-26 10:52 | CA ---
Lexiscan Nuclear Stress Test Report Name: Scout Concepcion Exam Date: 05/26/2022 09:55 Exam Location: [facility] Stress Ht (in): 65 Wt (lb): 128 BSA: 1.64 Ordering Phys: Zofia Mosqueda DO Referring Phys: Lawanda Quinteros PAC Technologist: Ghassan Yang Age: 56 Gender: F : 1965 Procedure CPT: Indications: R19.00 R0609 ICD-10 Codes: Patient History: Medications: SEE LIST Meds past 24 hrs: Pretest Chest Pain: STRESS TEST Lexiscan Protocol Exercise Duration (min:sec): 02:[address] Depressions (mm): Angina Score: Dexter Score: Resting HR (bpm): 79 Peak HR (bpm): 109 Resting BP (mmHg): 135 / 87 Peak BP (mmHg): 130 / 72 MPHR: 165 Target HR: 140 % MPHR: 66 METS: 1.0 Total Dose: Peak Dose: Atropine: Double Product: 81040 BP Response: Stress Termination: PROTOCOL COMPLETE Stress Symptoms: SHORT OF BREATH Stress Summary: ECG ANALYSIS Resting ECG: Stress ECG: CONCLUSIONS Lexiscan cardio lyte stress test reveals normal heart rate and blood pressure response No ECG evidence for ischemia No arrhythmias Nuclear portion will be reported separately Dr. Finn Daniel MD (Electronically Signed) Final Date: 26 May 2022 10:51
--- NOTE | 2022-05-26 17:08 | NM ---
EXAMINATION TYPE: NM stress lexiscan cardiolite DATE OF EXAM: 05/26/2022 COMPARISON: NONE HISTORY: R19.00 R0609 TECHNIQUE: After the intravenous administration of 9.8 mCi Tc 99m Sestamibi - Cardiolite resting SPE CT images acquired 45 minutes post injection. The patient received 0.4mg Lexiscan, 24.5 mCi Tc 99m Sestamibi - Stress images obtained [address] injection FINDINGS: Review of stress and rest SPECT images demonstrates no distinct perfusion abnormality. Gated analysi s shows abnormal wall motion primarily within the cardiac apex with an estimated left ventricular eje ction fraction of 67 %. TID is 0.85 which is within normal limits. IMPRESSION: No scintigraphic evidence for reversible ischemia.
== END | disposition home or self-care (01) ==
LOC: RADNMMAIN 08:07
PROVIDERS: ATTEND Family Medicine
DX: R07.9 Chest pain, unspecified (principal); R19.00 Intra-abdominal and pelvic swelling, mass and lump, unspecified site; R06.09 Other forms of dyspnea
CPT/HCPCS: 93017; 78452; A9500

== ENCOUNTER → 2022-06-21 | Outpatient (CLI) | payer MEDICARE, OTHER ==
--- NOTE | 2022-06-21 19:29 | MM ---
Reason for Exam: Screening (asymptomatic). Last mammogram was performed 3 year(s) and 10 month(s) ago. Patient History: Menarche at age 17. Right ovary removed at age 40. Hysterectomy at age 40. Risk Values: Marry 5 year model risk: 0.8%. NCI Lifetime model risk: 5.5%. Prior Study Comparison: 05/18/2016 Bilateral Diagnostic Mammogram, [facility]. 06/18/2017 Bilateral Screening Mammogram, [facility]. 08/28/2018 Bilateral Screening Mammogram, [facility]. Tissue Density: There are scattered fibroglandular densities. Findings: Analyzed By CAD. Pattern appears stable. There are some fine punctate calcifications in the outer posterior 8 cm from the nipple left breast. These are not well visualized on the mediolateral oblique view. Additional workup is recommended. Overall Assessment: Incomplete: need additional imaging evaluation, BI-RAD 0 Management: Diagnostic Mammogram of the left breast. A negative mammogram report should not preclude additional follow up of suspicious palpable abnormalities. Patient should continue monthly self breast exam. A clinical breast exam by your physician is recommended on an annual basis and results should be correlated with mammographic findings. Electronically signed and approved by: Nacho Trinidad D.O. Radiologis
== END | disposition home or self-care (01) ==
LOC: RADMAMWWP 06:59
PROVIDERS: ATTEND Family Medicine
DX: Z12.31 Encounter for screening mammogram for malignant neoplasm of breast (principal)
CPT/HCPCS: 77067

== ENCOUNTER → 2022-06-26 | Outpatient (CLI) | payer MEDICARE, OTHER ==
--- NOTE | 2022-06-26 07:24 | MM ---
Reason for Exam: Additional evaluation requested from abnormal screening. Last screening mammogram was performed less than 1 month ago. Patient History: Menarche at age 17. Right ovary removed at age 40. Hysterectomy at age 40. Risk Values: Marry 5 year model risk: 0.8%. NCI Lifetime model risk: 5.5%. Prior Study Comparison: 06/18/2017 Bilateral Screening Mammogram, [facility]. 08/28/2018 Bilateral Screening Mammogram, [facility]. 06/21/2022 Bilateral MG screening mammo w CAD, [facility]. Tissue Density: Left: There are scattered fibroglandular densities. Findings: Analyzed By CAD. On the magnification craniocaudal view there is a group of 10 clustered fine calcifications. These appear to be present or aspect medial lateral view. Superiorly out of the field of view on the magnification medial lateral view. Stereotactic core biopsy is recommended. Overall Assessment: Suspicious, BI-RAD 4 Management: Stereotactic Core Biopsy of the left breast. A negative mammogram report should not preclude additional follow up of suspicious palpable abnormalities. Patient should continue monthly self breast exam. A clinical breast exam by your physician is recommended on an annual basis and results should be correlated with mammographic findings. Electronically signed and approved by: Nacho Trinidad D.O. Radiologis
== END | disposition home or self-care (01) ==
LOC: RADMAMWWP 06:43
PROVIDERS: ATTEND Family Medicine
DX: R92.1 Mammographic calcification found on diagnostic imaging of breast (principal); R92.8 Other abnormal and inconclusive findings on diagnostic imaging of breast; Z90.721 Acquired absence of ovaries, unilateral
CPT/HCPCS: 77065; G0279; 77061

== ENCOUNTER → 2022-07-13 | Day surgery (SDC) | payer MEDICARE, OTHER ==
--- NOTE | 2022-07-13 08:54 | P.PCN ---
Date of Procedure: 07/13/22 Preoperative Diagnosis: mammographic abnormality left breast Postoperative Diagnosis: same Procedure(s) Performed: stereotactic core biopsy left breast Anesthesia: local Surgeon: Andreia Yanez Pathology: other (breast tissue with microcalcifications of concern in specimen) Condition: stable Disposition: same day Indications for Procedure: mammographic abnormality left breast lower outer quadrant Operative Findings: biopsy of specimen reveals microcalcifications of concern Description of Procedure: The patient is a 56-year-old white female who was noted to have microcalcifications of concern in her left breast in the lower outer quadrant a sonia on a recent mammogram. She is recommended to undergo a stereotactic core biopsy. Risks and benefits of the procedure were discussed with the patient and she wished to proceed. She was brought to the stereotactic core biopsy room. She was positioned prone on the lo-rad table. A CC from below approach was utilized. A administrative medical director film was obtained. The lesion of concern was identified. The breast was prepped using Betadine. 10 mL of 1% lidocaine and 20 mL of half percent lidocaine were used to anesthetize the area of concern. A 9-gauge vacuum-assisted core rotating the biopsy needle was driven to the correct coordinates. 14 core biopsy specimens were obtained. Radiograph of the specimen revealed the area of concern had been adequately sampled with the calcifications of concern in the specimen. The area was lavaged. A secure tamera top hat clip was placed. This was noted to be in the correct location. The patient tolerated the procedure in stable condition. The patient will follow with Dr. Watts next week the specimen was sent to pathology.
--- NOTE | 2022-07-17 08:27 | MM ---
Date of Procedure: 07/13/22 Preoperative Diagnosis: mammographic abnormality left breast Postoperative Diagnosis: same Procedure(s) Performed: stereotactic core biopsy left breast Anesthesia: local Surgeon: Andreia Yanez Pathology: other (breast tissue with microcalcifications of concern in specimen) Condition: stable Disposition: same day Indications for Procedure: mammographic abnormality left breast lower outer quadrant Operative Findings: biopsy of specimen reveals microcalcifications of concern Description of Procedure: The patient is a 56-year-old white female who was noted to have microcalcifications of concern in her left breast in the lower outer quadrant area on a recent mammogram. She is recommended to undergo a stereotactic core biopsy. Risks and benefits of the procedure were discussed with the patient and she wished to proceed. She was brought to the stereotactic core biopsy room. She was positioned prone on the lo-rad table. A CC from below approach was utilized. A fabrics and material cutter film was obtained. The lesion of concern was identified. The breast was prepped using Betadine. 10 mL of 1% lidocaine and 20 mL of half percent lidocaine were used to anesthetize the area of concern. A 9-gauge vacuum-assisted core rotating the biopsy needle was driven to the correct coordinates. 14 core biopsy specimens were obtained. Radiograph of the specimen revealed the area of concern had been adequately sampled with the calcifications of concern in the specimen. The area was lavaged. A secure tamera top hat clip was placed. This was noted to be in the correct location. The patient tolerated the procedure in stable condition. The patient will follow with Dr. Watts next week the specimen was sent to pathology. [facility]ON HOSPITALGhassan
== END ==
LOC: RADMAMWWP 06:54
PROVIDERS: ATTEND Surgery
DX: N60.12 Diffuse cystic mastopathy of left breast (principal)
CPT/HCPCS: 88305; 19081; A4648

== ENCOUNTER → 2022-07-13 | Outpatient (CLI) | payer MEDICARE, OTHER ==
--- NOTE | 2022-07-13 08:10 | P.GSHP ---
History of Present Illness H&P Date: 07/13/22 Chief Complaint: abnormal left breast mammogram Scout is a 56-year-old white female seen in consultation for Zofia Mosqueda regarding a mammographic abnormality in her left breast. She underwent a bilateral mammogram [place] [address]34 which revealed some calcifications of concern in the left breast. A diagnostic left breast mammogram was then performed and 76922 which confirmed the calcifications in the lower lateral aspect of the breast and a stereotactic core biopsy was recommended. This was a screening mammogram. The patient has not felt anything of concern in either breast. She's never had any surgery on her breasts. She is not complaining of any nipple discharge or skin changes. She's not had any recent trauma or infection in the breast. Caffeine: 3 drinks/day pop and tea nicotine: 1 / PPD decreased to 11/day one month ago chocolate: daily BCP: never used had a hysterectomy Family History: negative for cancer Hormonal History: menarche: 15 G0 was unable to get hysterectomy for bleeding and painful periods done in her 20's, left one ovary Surgical History: straighten muscle on her eyes 4 Rotator cuff surgeries on her left shoulder Hysterectomy removing her right ovary implant to stop seizures Medical History: seizure depression/anxiety Neuropathy left foot COPD bipolar Social history: nicotine: as above alcohol: none drugs: none - Constitutional Constitutional: Denies chills, Denies fever - EENT Comment: cataract surgery bilateral Eyes: bilateral as per HPI Ears: deny: decreased hearing, tinnitus Ears, nose, mouth and throat: Denies headache, Denies sore throat - Breasts Breasts: bilateral: as per HPI - Cardiovascular Cardiovascular: Denies chest pain, Denies shortness of breath - Respiratory Respiratory: Denies cough, Denies 7 - Gastrointestinal Gastrointestinal: Denies abdominal pain, Denies diarrhea, Denies nausea, Denies vomiting - Genitourinary (Female) Genitourinary: Denies dysuria, Denies hematuria - Menstruation Menstruation: Reports as per HPI - Musculoskeletal Musculoskeletal: Reports myalgias - Integumentary Integumentary: Denies pruritus, Denies rash - Neurological Neurological: Reports as per HPI - Psychiatric Psychiatric: Reports depression - Endocrine Endocrine: Denies fatigue, Denies weight change - Hematologic/Lymphatic Comment: none - Allergic/Immunologic Comment: none Past Medical History Past Medical History: Seizure Disorder Additional Past Medical History / Comment(s): colitis, neuropathy, chronic back pain x 2 years History of Any Multi-Drug Resistant Organisms: None Reported Past Surgical History: Hysterectomy, Orthopedic Surgery Additional Past Surgical History / Comment(s): vagus nerve stimulator, eye surgery, left shoulders Past Anesthesia/Blood Transfusion Reactions: No Reported Reaction Past Psychological History: Anxiety, Bipolar, Depression Smoking Status: Current every day smoker Past Alcohol Use History: None Reported Additional Past Alcohol Use History / Comment(s): "in process of quiting" Dec 2018 Past Drug Use History: None Reported - Past Family History Mother Family Medical History: Congestive Heart Failure (CHF), COPD Father Family Medical History: Congestive Heart Failure (CHF), Coronary Artery Disease (CAD) Medications and Allergies Home Medications Medication Instructions Recorded Confirmed Type lamoTRIgine [LaMICtal] 200 mg PO BID 01/04/14 06/26/22 History Levothyroxine Sodium [Synthroid] 25 mcg PO DAILY 12/08/16 06/26/22 History Omeprazole [PriLOSEC] 40 mg PO DAILY 12/08/16 06/26/22 History Topiramate [Topamax] 200 mg PO BID 12/08/16 06/26/22 History oxyCODONE-APAP 10-325MG [Percocet 1 tab PO TID 12/08/16 06/26/22 History 10-325 mg] Fludrocortisone [Florinef] 0.2 mg PO HS 05/08/17 06/26/22 History Atorvastatin [Lipitor] 20 mg PO QAM 12/25/18 06/26/22 History QUEtiapine FUMARATE [QUEtiapine 300 mg PO HS 01/10/19 06/26/22 History FUMARATE ER] Amitriptyline HCl [Elavil] 20 mg PO HS 11/17/19 06/26/22 History sulfaSALAzine [Sulfasalazine] 1,000 mg PO BID 11/17/19 06/26/22 History Brexpiprazole [Rexulti] 1 mg PO DAILY 06/26/22 06/26/22 History Gabapentin [Neurontin] 100 mg PO TID 06/26/22 06/26/22 History Verapamil [Isoptin] 40 mg PO TID 06/26/22 06/26/22 History Allergies Allergy/AdvReac Type Severity Reaction Status Date / Time Penicillins Allergy Unknown Verified 11/17/19 11:02 gabapentin [From Neurontin] AdvReac Nausea Verified 11/17/19 11:02 pregabalin [From Lyrica] AdvReac Nausea Verified 11/17/19 11:02 Surgical - Exam - General moderate distress - Eyes normal ocular movement - Neck trachea midline - Respiratory normal respiratory effort, clear to auscultation - Cardiovascular Rhythm: regular Heart Sounds: normal: S1, S2 - Abdomen Abdomen: soft, non tender, no guarding, no rigid, no rebound - Integumentary implant in the left chest wall for seizures - Musculoskeletal normal gait - Psychiatric oriented to time, oriented to person, oriented to place, speech is normal, memory intact Breast Exam: BRA: sports bra medium inspection: bilateral grade 2 ptosis, well-healed scar left chest wall related to vagus nerve stimulator for her seizures palpation: Right breast: Multi-positional exam fibrocystic changes no dominant masses or nodules of concern right axilla: No adenopathy of concern Left breast: Multi-positional exam fibrocystic changes no dominant masses or nodules of concern Left axilla: No adenopathy of concern Results Re: Reviewed with Dr. Marte, microcalcifications of concern noted in the left lower outer Assessment and Plan Assessment: impression: Microcalcifications of concern left breast Seizure disorder Depression/anxiety/bipolar Neuropathy left foot Surgery on left rotator cuff 4 times Plan: Left breast stereotactic core biopsy Risk and benefits of procedure discussed with the patient. Risks include but are not limited to bleeding, infection, reaction to the anesthetic. If the biopsy results were discordant and further tissue acquisition may be necessary. The patient understands and wishes to proceed Cc: Dr. Moscoso
[2022-07-13 08:14] VITALS: BP 122/75; PULSE 102; RESP 17; TEMP 97.8
== END ==
LOC: WWCWWP 06:53
PROVIDERS: ATTEND Surgery
DX: R92.0 Mammographic microcalcification found on diagnostic imaging of breast (principal); G40.909 Epilepsy, unspecified, not intractable, without status epilepticus; F31.9 Bipolar disorder, unspecified; K52.9 Noninfective gastroenteritis and colitis, unspecified; G89.29 Other chronic pain; G62.9 Polyneuropathy, unspecified; F41.9 Anxiety disorder, unspecified; F17.210 Nicotine dependence, cigarettes, uncomplicated; J44.9 Chronic obstructive pulmonary disease, unspecified; Z82.49 Family history of ischemic heart disease and other diseases of the circulatory system; Z88.0 Allergy status to penicillin; Z88.8 Allergy status to other drugs, medicaments and biological substances

== ENCOUNTER → 2022-07-20 | Outpatient (CLI) | payer MEDICARE, OTHER ==
[2022-07-20 12:19] VITALS: BP 131/78; PULSE 102; RESP 18; TEMP 98.4
--- NOTE | 2022-07-20 12:34 | P.PN ---
Subjective Progress Note Date: 07/20/22 Principal diagnosis: fibroadenomatoid hyperplasia Scout is a 56 year old female status post left breast stero-biopsy on 07-13-22. Her pathology was benign specific. He tolerated the procedure without difficulty. Objective - Vital Signs Vital signs: Vital Signs Temp 98.4 F 07/20/22 12:16 Pulse 102 H 07/20/22 12:16 Resp 18 07/20/22 12:16 BP 131/78 07/20/22 12:16 Pulse Ox 97 07/20/22 12:16 FiO2 Intake & Output 07/19/22 07/20/22 07/20/22 18:59 06:59 18:59 Weight 58.967 kg - Constitutional General appearance: Present: cooperative - EENT Eyes: Present: EOMI ENT: Present: hearing grossly normal - Neck Neck: Present: normal ROM - Respiratory Respiratory: bilateral: CTA - Cardiovascular Heart sounds: normal: S1, S2 - Integumentary Integumentary Comment(s): Biopsy site left breast mild ecchymosis, no hematoma or infection - Musculoskeletal Musculoskeletal: Present: gait normal - Psychiatric Psychiatric: Present: A&O x's 3, appropriate affect, intact judgment & insight Assessment and Plan Assessment: Impression: Patient status post left breast stereotactic core biopsy benign concordant Plan: Left breast mammogram in 6 months with examination at that time Patient to follow up sooner any questions or concerns CC: Lawanda Maxwell
== END ==
LOC: WWCWWP 11:53
PROVIDERS: ATTEND Surgery
DX: N60.22 Fibroadenosis of left breast (principal); F17.200 Nicotine dependence, unspecified, uncomplicated; Z88.0 Allergy status to penicillin; Z88.9 Allergy status to unspecified drugs, medicaments and biological substances; Z88.8 Allergy status to other drugs, medicaments and biological substances

== ENCOUNTER → 2022-09-20 | Day surgery (SDC) | payer MEDICARE, OTHER ==
[2022-09-12 16:24] VITALS: BMI 21.3
[~2022-09-20] MED LIST changes: +LACTATED RINGERS 1,000 ML IV SCH; +LIDOCAINE 1% (10MG/ML) FOR IV START INTRADERMA PRN; -PREMYELOGRAM MEDICATION REVIEW 1 EACH MISC PO ONE; +PROPOFOL 10 MG/ML 20 ML VIAL IV ONE
[2022-09-20 10:18] VITALS: TEMP 98
--- NOTE | 2022-09-20 11:38 | P.PCN ---
Date of Procedure: 09/20/22 Procedure(s) Performed: BRIEF HISTORY: Patient is a 57-year-old pleasant white female scheduled for an elective colonoscopy as a part of screening for colon cancer. PROCEDURE PERFORMED: Colonoscopy with snare polypectomy. PREOPERATIVE DIAGNOSIS: Screening for colon cancer. IV sedation per Anesthesia. PROCEDURE: After informed consent was obtained, the patient, was brought into the endoscopy unit. IV sedation was administered by Anesthesia under continuous monitoring. Digital rectal examination was normal. Initially the Olympus CF-160 flexible video colonoscope was then inserted in the rectum, gradually advanced into the cecum without any difficulty. Careful examination was performed as the scope was gradually being withdrawn. Ileocecal valve and the appendiceal orifice were visualized and appeared normal. Prep was excellent. Mucosa of the cecum, ascending colon, transverse colon, descending colon, appeared normal. In the sigmoid there was a 6 mm flat polyp removed by snare polypectomy. Rest of the sigmoid colon, and rectum appeared normal. Retroflexion was performed in the rectum and no lesions were seen. The patient tolerated the procedure well. IMPRESSION: 6 mm flat; sigmoid polyp status post cold snare polypectomy Rest of the colon appeared normal RECOMMENDATIONS: Findings of this examination were discussed with the patient as well as a family. She was advised to follow with the biopsy results. If the biopsy doesn't adenoma she can have a repeat colonoscopy in 5 years..
[2022-09-20 11:52] VITALS: RESP 12
[2022-09-20 11:56] VITALS: BP 106/58; PULSE 78
== END ==
LOC: ORWHC2ENDO 09:04
PROVIDERS: ATTEND Internal Medicine Gastroenterology
DX: Z12.11 Encounter for screening for malignant neoplasm of colon (principal); K63.5 Polyp of colon; I10 Essential (primary) hypertension; J44.9 Chronic obstructive pulmonary disease, unspecified; Z88.0 Allergy status to penicillin; Z79.899 Other long term (current) drug therapy; Z98.890 Other specified postprocedural states
CPT/HCPCS: 88305; 45385; J2704

== ENCOUNTER → 2022-10-05 | Day surgery (SDC) | payer MEDICARE, OTHER ==
[~2022-10-05] MED LIST changes: +HYDROcodone/APAP 5-325MG 1 EACH TAB PO PRN; -LACTATED RINGERS 1,000 ML IV SCH; -LIDOCAINE 1% (10MG/ML) FOR IV START INTRADERMA PRN; -PROPOFOL 10 MG/ML 20 ML VIAL IV ONE; +diazePAM 5 MG TAB PO STA
[2022-10-05 08:52] VITALS: RESP 16; TEMP 98.3
[2022-10-05 09:51] VITALS: BP 118/66; PULSE 79
--- NOTE | 2022-10-05 10:38 | FL ---
INDICATION: Patient age:Female; 57 years old; Reason for study: R20.2 PARESTHESIA OF SKIN; [facility], with history of lumbar and thoracic R20.2 PARESTHES IA OF SKIN. COMPARISON: Myelogram 01/31/2019, lumbar spine radiograph 11/17/2020, CT lumbar spine 01/31/2019. After the procedure was explained and informed consent was obtained from the patient, the patient was prepped and draped in the usual sterile fashion. Patient was put in the prone position and the lower lumbar spine was imaged. 1% Lidocaine was used as local anesthetic using a 25 gauge needle. A 22 gau RiskIQ spinal needle was then advanced into the thecal sac at L3-L4 using fluoroscopic guidance. Approxim ately 12 cc of contrast was injected into the thecal sac. The needle was then removed and a Band-Aid was applied. The patient tolerated procedure well. The patient was then sent to the CT unit for CT exam. Fluoroscopic time: 14 seconds Fluoroscopic images: 11 Total DAP: Unable to obtain due to how old the machine is. IMPRESSIONS: Successful myelogram with CT myelogram to follow.
--- NOTE | 2022-10-05 11:10 | CT ---
EXAMINATION TYPE: CT lumbar spine w con CT DLP: 449.5 mGycm, Automated exposure control for dose reduction was used. DATE OF EXAM: 10/05/2022 9:58 AM COMPARISON: CT lumbar spine 01/31/2019. CLINICAL INDICATION:Female, 57 years old with history of R20.2 PARESTHESIA OF SKIN; [facility], Lumbar myelo gram. TECHNIQUE: Multiple axial images were obtained from the midportion of T11 through the sacroiliac nazia nts after fluoroscopic myelogram. Soft tissue and bone windows in coronal and sagittal planes were o btained and reviewed. FINDINGS: Alignment: There are 5 lumbar type vertebral bodies within normal alignment. Bone: No evidence of fracture is identified. Discs: T12-L1: No disc herniation. No spinal canal or neural foraminal stenosis is identified. L1-L2: No disc herniation. No spinal canal or neural foraminal stenosis is identified. L2-L3: No disc herniation. No spinal canal or neural foraminal stenosis is identified. L3-L4: No disc herniation. No spinal canal or neural foraminal stenosis is identified. L4-L5: No disc herniation. No spinal canal or neural foraminal stenosis is identified. L5-S1: No disc herniation. No spinal canal or neural foraminal stenosis is identified. Other: Nonobstructive right 3 mm calculus IMPRESSION: 1. No evidence of fracture of the lumbar spine. 2. Normal CT myelogram without evidence for significant central canal or neural foraminal stenosis. N o disc herniation identified. 3. Nonobstructive right renal calculus.
== END ==
LOC: RADPROMAIN 07:32
PROVIDERS: ATTEND Orthopaedic Surgery
DX: R20.2 Paresthesia of skin (principal); N20.0 Calculus of kidney
CPT/HCPCS: 62304; 72132; Q9966

== ENCOUNTER → 2023-01-25 | Outpatient (CLI) | payer MEDICARE, OTHER ==
--- NOTE | 2023-01-25 08:20 | P.PN ---
Subjective Progress Note Date: 01/25/23 Principal diagnosis: fibrocystic breast changes abnormal left breast mammogram Scout is a 56-year-old white female seen in consultation for Zofia Mosqueda regarding a mammographic abnormality in her left breast. She underwent [place] mamm[place] [address] which revealed some calcifications of concern in the left breast. A diagnostic left breast mammogram was then performed and 16127 which confirmed the calcifications in the lower lateral aspect of the breast and a stereotactic core biopsy was recommended. This was a screening mammogram. The patient has not felt anything of concern in either breast. She's never had any surgery on her breasts. She is not complaining of any nipple discharge or skin changes. She's not had any recent trauma or infection in the breast. She underwent a left breast stereotactic core biopsy on 6123. Her pathology revealed fibroadenomatoid hyperplasia with calcifications in a background of fibrocystic changes. The patient is not complaining of any new lumps masses or nodules of concern. She has not had a recent left breast mammogram. Caffeine: 3 drinks/day pop and tea nicotine: 1 / PPD decreased to 11/day one month ago chocolate: daily BCP: never used had a hysterectomy Family History: negative for cancer Hormonal History: menarche: 15 G0 was unable to get hysterectomy for bleeding and painful periods done in her 20's, left one ovary Surgical History: straighten muscle on her eyes 4 Rotator cuff surgeries on her left shoulder Hysterectomy removing her right ovary implant to stop seizures Medical History: seizure depression/anxiety Neuropathy left foot COPD bipolar Social history: nicotine: as above alcohol: none drugs: none - Constitutional Constitutional: Denies chills, Denies fever - EENT Comment: cataract surgery bilateral Eyes: bilateral as per HPI Ears: deny: decreased hearing, tinnitus Ears, nose, mouth and throat: Denies headache, Denies sore throat - Breasts Breasts: bilateral: as per HPI - Cardiovascular Cardiovascular: Denies chest pain, Denies shortness of breath - Respiratory Respiratory: Denies cough, Denies 7 - Gastrointestinal Gastrointestinal: Denies abdominal pain, Denies diarrhea, Denies nausea, Denies vomiting - Genitourinary (Female) Genitourinary: Denies dysuria, Denies hematuria - Menstruation Menstruation: Reports as per HPI - Musculoskeletal Musculoskeletal: Reports myalgias - Integumentary Integumentary: Denies pruritus, Denies rash - Neurological Neurological: Reports as per HPI - Psychiatric Psychiatric: Reports depression - Endocrine Endocrine: Denies fatigue, Denies weight change - Hematologic/Lymphatic Comment: none - Allergic/Immunologic Comment: none Past Medical History Past Medical History: Seizure Disorder Additional Past Medical History / Comment(s): colitis, neuropathy, chronic back pain x 2 years History of Any Multi-Drug Resistant Organisms: None Reported Past Surgical History: Hysterectomy, Orthopedic Surgery Additional Past Surgical History / Comment(s): vagus nerve stimulator, eye surgery, left shoulders Past Anesthesia/Blood Transfusion Reactions: No Reported Reaction Past Psychological History: Anxiety, Bipolar, Depression Smoking Status: Current every day smoker Past Alcohol Use History: None Reported Additional Past Alcohol Use History / Comment(s): "in process of quiting" Dec 2018 Past Drug Use History: None Reported - Past Family History Mother Family Medical History: Congestive Heart Failure (CHF), COPD Father Family Medical History: Congestive Heart Failure (CHF), Coronary Artery Disease (CAD) Medications and Allergies Home Medications Medication Instructions Recorded Confirmed Type lamoTRIgine [LaMICtal] 200 mg PO BID 01/04/14 06/26/22 History Levothyroxine Sodium [Synthroid] 25 mcg PO DAILY 12/08/16 06/26/22 History Omeprazole [PriLOSEC] 40 mg PO DAILY 12/08/16 06/26/22 History Topiramate [Topamax] 200 mg PO BID 12/08/16 06/26/22 History oxyCODONE-APAP 10-325MG [Percocet 1 tab PO TID 12/08/16 06/26/22 History 10-325 mg] Fludrocortisone [Florinef] 0.2 mg PO HS 05/08/17 06/26/22 History Atorvastatin [Lipitor] 20 mg PO QAM 12/25/18 06/26/22 History QUEtiapine FUMARATE [QUEtiapine 300 mg PO HS 01/10/19 06/26/22 History FUMARATE ER] Amitriptyline HCl [Elavil] 20 mg PO HS 11/17/19 06/26/22 History sulfaSALAzine [Sulfasalazine] 1,000 mg PO BID 11/17/19 06/26/22 History Brexpiprazole [Rexulti] 1 mg PO DAILY 06/26/22 06/26/22 History Gabapentin [Neurontin] 100 mg PO TID 06/26/22 06/26/22 History Verapamil [Isoptin] 40 mg PO TID 06/26/22 06/26/22 History Allergies Allergy/AdvReac Type Severity Reaction Status Date / Time Penicillins Allergy Unknown Verified 11/17/19 11:02 gabapentin [From Neurontin] AdvReac Nausea Verified 11/17/19 11:02 pregabalin [From Lyrica] AdvReac Nausea Verified 11/17/19 11:02 Objective - Constitutional General appearance: Present: cooperative - EENT Eyes: Present: EOMI ENT: Present: hearing grossly normal - Neck Neck: Present: normal ROM - Respiratory Details: wheezing right lung base Respiratory: left: CTA - Cardiovascular Rhythm: regular Heart sounds: normal: S1, S2 - Integumentary Integumentary: Present: normal turgor - Musculoskeletal Musculoskeletal: Present: gait normal - Psychiatric Psychiatric: Present: A&O x's 3, appropriate affect, intact judgment & insight - Additional findings Additional findings: Breast Exam: BRA: sports bra medium inspection: bilateral grade 2 ptosis, well-healed scar left chest wall related to vagus nerve stimulator for her seizures palpation: Right breast: Multi-positional exam fibrocystic changes no dominant masses or nodules of concern right axilla: No adenopathy of concern Left breast: Multi-positional exam fibrocystic changes no dominant masses or nodules of concern Left axilla: No adenopathy of concern Assessment and Plan Assessment: impression: Microcalcifications of concern left breast Seizure disorder Depression/anxiety/bipolar Neuropathy left foot Surgery on left rotator cuff 4 times Plan: Left breast stereotactic core biopsy done 6122 Patient is due for a left breast mammogram, this will be scheduled in the near future she is to follow up afterwards for results Bilateral mammogram in 6 months if this is okay Cc: Dr. Moscoso
[2023-01-25 08:21] VITALS: BP 145/83; PULSE 104; RESP 18; TEMP 98.5
== END ==
LOC: WWCWWP 08:06
PROVIDERS: ATTEND Surgery
DX: R92.0 Mammographic microcalcification found on diagnostic imaging of breast (principal); N60.12 Diffuse cystic mastopathy of left breast; G40.909 Epilepsy, unspecified, not intractable, without status epilepticus; F41.9 Anxiety disorder, unspecified; F31.9 Bipolar disorder, unspecified; J44.9 Chronic obstructive pulmonary disease, unspecified; G89.29 Other chronic pain; F17.210 Nicotine dependence, cigarettes, uncomplicated; G62.9 Polyneuropathy, unspecified; Z98.890 Other specified postprocedural states; Z88.0 Allergy status to penicillin; Z88.8 Allergy status to other drugs, medicaments and biological substances; Z87.19 Personal history of other diseases of the digestive system; Z79.899 Other long term (current) drug therapy; Z79.1 Long term (current) use of non-steroidal anti-inflammatories (NSAID)

== ENCOUNTER → 2023-02-07 | Outpatient (CLI) | payer MEDICARE, OTHER ==
--- NOTE | 2023-02-07 07:34 | MM ---
Reason for Exam: Follow-up at short interval from prior study. Last screening mammogram was performed 7 month(s) ago. Patient History: Menarche at age 17. Patient has no children. Right ovary removed at age 40. Hysterectomy at age 40. Postmenopausal. Previous Hyperplasia w/o Atypia at age 56. 07/13/2022, Benign MG stereo VAD BX LT on the left side. Risk Values: Marry 5 year model risk: 1.5%. NCI Lifetime model risk: 9.5%. Prior Study Comparison: 08/28/2018 Bilateral Screening Mammogram, [facility]. 06/21/2022 Bilateral MG screening mammo w CAD, [facility]. 06/26/2022 Left MG 3D work up w/cad LT, [facility]. Tissue Density: Left: The breast tissue is almost entirely fat. Findings: Analyzed By CAD. Left breast biopsy clip. There is no suspicious group of microcalcifications or new suspicious mass. No new suspicious masses, calcifications or distortions. Overall Assessment: Benign, BI-RAD 2 Management: Screening Mammogram of both breasts in 1 year. Results were given to the patient verbally at the time of exam. Patient should continue monthly self-breast exams. A clinical breast exam by your physician is recommended on an annual basis. This exam should not preclude additional follow-up of suspicious palpable abnormalities. Note on Marry scores and lifetime risk: 1. A Marry score greater than 3% is considered moderate risk. If this is the case, consider specialist referral to assess eligibility for a risk reducing agent. 2. If overall lifetime risk for the development of breast cancer is 20% or higher, the patient may qualify for future screening with alternating mammogram and breast MRI. Electronically signed and approved by: Josiah Marte DO
== END | disposition home or self-care (01) ==
LOC: RADMAMWWP 06:53
PROVIDERS: ATTEND Surgery
DX: R92.312 Mammographic fatty tissue density, left breast (principal); Z78.0 Asymptomatic menopausal state
CPT/HCPCS: 77061; 77065

== ENCOUNTER → 2023-05-15 | Outpatient (CLI) | payer MEDICARE, OTHER ==
--- NOTE | 2023-05-15 10:04 | CTL ---
EXAMINATION TYPE: CT Low Dose Lung DATE OF EXAM ORDERED: 05/15/2023 HISTORY: . Lung cancer screening CT DLP: 71.[address] CTDI: 2.2 mGy Automated exposure control for dose reduction was used. SCREENING VISIT: Initial COMPARISON: CTA 01/10/2019 TECHNIQUE: Low dose computed tomography scan was performed through the chest at 1 mm thick sections a nd reconstructed images in the coronal plane at [address] DIAGNOSTIC QUALITY: Satisfactory FINDINGS: LUNG NODULES: None. Some minimal dependent atelectasis may be within the posterior lung bases. LUNGS: COPD: Severity: None Fibrosis: Severity: None Lymph nodes: None Other findings: None RIGHT PLEURAL SPACE: Effusion: None Calcification: None Thickening: None Pneumothorax: None LEFT PLEURAL SPACE: Effusion: None Calcification: None Thickening: None Pneumothorax: None HEART: Heart Size: Normal Coronary calcification: None Pericardial effusion: None OTHER FINDINGS: Upper abdomen: Normal Bony thorax: Normal Supraclavicular region: Normal Other: Ascending thoracic aorta at the level the main pulmonary artery measures 2.3 cm. The main pul monary artery at the bifurcation measures 2.0 cm. IMPRESSION: 1. No suspicious changes to suggest primary or metastatic neoplasm FOLLOW UP CT CHEST RECOMMENDATION: Follow-up low-dose CT chest one year CT LUNG RAD: Lung-Rad 1 Negative
== END | disposition home or self-care (01) ==
LOC: RADCTMAIN 08:14
PROVIDERS: ATTEND Family Medicine
DX: Z12.2 Encounter for screening for malignant neoplasm of respiratory organs (principal); F17.210 Nicotine dependence, cigarettes, uncomplicated
CPT/HCPCS: 71271

== ENCOUNTER → 2023-07-13 | Outpatient (CLI) | payer MEDICARE, OTHER ==
--- NOTE | 2023-07-13 12:23 | CT ---
EXAMINATION TYPE: CT lumbar spine wo con DATE OF EXAM: 07/13/2023 COMPARISON: 10/05/2022 HISTORY: Low back pain, DDD CT DLP: 900 mGycm CONTRAST: None TECHNIQUE: CT of the lumbar spine is performed on a spiral scan at 3 mm thick sections. Reconstructed images are performed in the coronal and sagittal planes. FINDINGS: There is a 0.3 cm nonobstructing renal stone upper pole right kidney T12-L1: No focal disc herniation or significant disc bulge is evident. No spinal canal stenosis or neural foraminal stenosis is present. L1-L2: No focal disc herniation or significant disc bulge is evident. No spinal canal stenosis or n eural foraminal stenosis is present L2-L3: Minimal disc bulges anterior thecal sac contact. No AP spinal canal stenosis present. Neural f oramen are patent. L3-L4: No focal disc herniation or significant disc bulge is evident. No spinal canal stenosis or n eural foraminal stenosis is present L4-L5: Minimal disc bulges anterior thecal sac contact. Facet hypertrophy is present. No spinal canal stenosis is evident. Mild foraminal narrowing is present L5-S1: No focal disc herniation or significant disc bulge is evident. No spinal canal stenosis or n eural foraminal stenosis is present Vertebral alignment appears normal. Disc heights are preserved. Vertebral body heights are preserved. No significant interval change is evident from comparison. IMPRESSION: 1. Minimal disc bulging L2-3 and L4-5 without spinal canal stenosis. 2. Stable nonobstructing 0.3 cm calcification upper pole right kidney.
== END | disposition home or self-care (01) ==
LOC: RADCTMAIN 06:33
PROVIDERS: ATTEND Psychiatry & Neurology Neurology
DX: M51.36 Other intervertebral disc degeneration, lumbar region (principal); M51.26 Other intervertebral disc displacement, lumbar region; N20.0 Calculus of kidney
CPT/HCPCS: 72131

== ENCOUNTER → 2023-07-16 | Outpatient (CLI) | payer MEDICARE, OTHER ==
--- NOTE | 2023-07-24 13:42 | MM ---
Reason for Exam: Follow-up at short interval from prior study. Last mammogram was performed 1 year(s) and 1 month(s) ago. Patient History: Menarche at age 17. Patient has no children. Right ovary removed at age 40. Hysterectomy at age 40. Postmenopausal. Previous Hyperplasia w/o Atypia at age 56. 07/13/2022, Benign MG stereo VAD BX LT on the left side. Risk Values: Marry 5 year model risk: 1.5%. NCI Lifetime model risk: 9.5%. Tissue Density: There are scattered areas of fibroglandular density. Findings: Analyzed By CAD. Microclip central outer aspect left breast posterior depth from recent biopsy. Annual asymmetric density at the site of biopsy remains unchanged for 6 months. Additional short interval follow-up can be performed to ensure more long-term stability given that this was a new finding following the biopsy. Otherwise, no significant change. Overall Assessment: Probably benign, BI-RAD 3 Management: Diagnostic Mammogram of the left breast in 6 months. Results were given to the patient verbally at the time of exam. Patient should continue monthly self-breast exams. A clinical breast exam by your physician is recommended on an annual basis. This exam should not preclude additional follow-up of suspicious palpable abnormalities. Note on Marry scores and lifetime risk: 1. A Marry score greater than 3% is considered moderate risk. If this is the case, consider specialist referral to assess eligibility for a risk reducing agent. 2. If overall lifetime risk for the development of breast cancer is 20% or higher, the patient may qualify for future screening with alternating mammogram and breast MRI. Electronically signed and approved by: Arnoldo Caldwell M.D. Radiologist
== END | disposition home or self-care (01) ==
LOC: RADMAMWWP 12:27
PROVIDERS: ATTEND Surgery
DX: R92.323 Mammographic fibroglandular density, bilateral breasts (principal); R92.8 Other abnormal and inconclusive findings on diagnostic imaging of breast; Z78.0 Asymptomatic menopausal state
CPT/HCPCS: 77062; 77066

== ENCOUNTER → 2023-07-27 | Outpatient (CLI) | payer MEDICARE, OTHER ==
[2023-07-27 08:32] VITALS: BP 117/63; PULSE 75; RESP 17; TEMP 98.2
--- NOTE | 2023-07-27 09:01 | P.PN ---
Subjective Progress Note Date: 07/27/23 07-27-23 Principal diagnosis: fibrocystic breast changes abnormal left breast mammogram Scout is a 56-year-old white female seen in consultation for Zofia Mosqueda regarding a mammographic abnormality in her left breast. She underwent a bilateral mammogram and [id number] which revealed some calcifications of concern in the left breast. A diagnostic left breast mammogram was then performed and [id number] which confirmed the calcifications in the lower lateral aspect of the breast and a stereotactic core biopsy was recommended. This was a screening mammogram. The patient has not felt anything of concern in either breast. She's never had any surgery on her breasts. She is not complaining of any nipple discharge or skin changes. She's not had any recent trauma or infection in the breast. She underwent a left breast stereotactic core biopsy on 6122. Her pathology revealed fibroadenomatoid hyperplasia with calcifications in a background of fibrocystic changes. The patient is not complaining of any new lumps masses or nodules of concern. She has not had a recent left breast mammogram. Bilateral mammogram on 07-16-23 BIRAD 3, left breast mammogram in 6 months, nothing of concern in the right breast She is not complaining of any new lumps masses or nodules of concern in either breast, she does however states she has tenderness in the right breast particularly with palpation. Caffeine: 3 drinks/day pop and tea in the past, now 1 pop and 1 tea/day nicotine: 1 1/2 PPD decreased to 11/day one month ago; decreased to 6/day chocolate: daily to occasional BCP: never used had a hysterectomy Family History: negative for cancer Hormonal History: menarche: 15 G0 was unable to get hysterectomy for bleeding and painful periods done in her 20's, left one ovary Surgical History: straighten muscle on her eyes 4 Rotator cuff surgeries on her left shoulder Hysterectomy removing her right ovary implant to stop seizures Medical History: seizure depression/anxiety Neuropathy left foot COPD bipolar Social history: nicotine: as above alcohol: none drugs: none - Constitutional Constitutional: Denies chills, Denies fever - EENT Comment: cataract surgery bilateral Eyes: bilateral as per HPI Ears: deny: decreased hearing, tinnitus Ears, nose, mouth and throat: Denies headache, Denies sore throat - Breasts Breasts: bilateral: as per HPI - Cardiovascular Cardiovascular: Denies chest pain, Denies shortness of breath - Respiratory Respiratory: Denies cough - Gastrointestinal Gastrointestinal: Denies abdominal pain, Denies diarrhea, Denies nausea, Denies vomiting - Genitourinary (Female) Genitourinary: Denies dysuria, Denies hematuria - Menstruation Menstruation: Reports as per HPI - Musculoskeletal Musculoskeletal: Reports myalgias - Integumentary Integumentary: Denies pruritus, Denies rash - Neurological Neurological: Reports as per HPI - Psychiatric Psychiatric: Reports depression - Endocrine Endocrine: Denies fatigue, Denies weight change - Hematologic/Lymphatic Comment: none - Allergic/Immunologic Comment: none Past Medical History Past Medical History: Seizure Disorder Additional Past Medical History / Comment(s): colitis, neuropathy, chronic back pain x 2 years History of Any Multi-Drug Resistant Organisms: None Reported Past Surgical History: Hysterectomy, Orthopedic Surgery Additional Past Surgical History / Comment(s): vagus nerve stimulator, eye surgery, left shoulders Past Anesthesia/Blood Transfusion Reactions: No Reported Reaction Past Psychological History: Anxiety, Bipolar, Depression Smoking Status: Current every day smoker Past Alcohol Use History: None Reported Additional Past Alcohol Use History / Comment(s): "in process of quiting" Dec 2018 Past Drug Use History: None Reported - Past Family History Mother Family Medical History: Congestive Heart Failure (CHF), COPD Father Family Medical History: Congestive Heart Failure (CHF), Coronary Artery Disease (CAD) Medications and Allergies Home Medications Medication Instructions Recorded Confirmed Type lamoTRIgine [LaMICtal] 200 mg PO BID 01/04/14 06/26/22 History Levothyroxine Sodium [Synthroid] 25 mcg PO DAILY 12/08/16 06/26/22 History Omeprazole [PriLOSEC] 40 mg PO DAILY 12/08/16 06/26/22 History Topiramate [Topamax] 200 mg PO BID 12/08/16 06/26/22 History oxyCODONE-APAP 10-325MG [Percocet 1 tab PO TID 12/08/16 06/26/22 History 10-325 mg] Fludrocortisone [Florinef] 0.2 mg PO HS 05/08/17 06/26/22 History Atorvastatin [Lipitor] 20 mg PO QAM 12/25/18 06/26/22 History QUEtiapine FUMARATE [QUEtiapine 300 mg PO HS 01/10/19 06/26/22 History FUMARATE ER] Amitriptyline HCl [Elavil] 20 mg PO HS 11/17/19 06/26/22 History sulfaSALAzine [Sulfasalazine] 1,000 mg PO BID 11/17/19 06/26/22 History Brexpiprazole [Rexulti] 1 mg PO DAILY 06/26/22 06/26/22 History Gabapentin [Neurontin] 100 mg PO TID 06/26/22 06/26/22 History Verapamil [Isoptin] 40 mg PO TID 06/26/22 06/26/22 History Allergies Allergy/AdvReac Type Severity Reaction Status Date / Time Penicillins Allergy Unknown Verified 11/17/19 11:02 gabapentin [From Neurontin] AdvReac Nausea Verified 11/17/19 11:02 pregabalin [From Lyrica] AdvReac Nausea Verified 11/17/19 11:02 Objective - Vital Signs Vital signs: Vital Signs Temp 98.2 F 07/27/23 08:30 Pulse 75 07/27/23 08:30 Resp 17 07/27/23 08:30 BP 117/63 07/27/23 08:30 Pulse Ox 97 07/27/23 08:30 FiO2 Intake & Output 07/26/23 07/27/23 07/27/23 18:59 06:59 18:59 Weight 60.781 kg - Constitutional General appearance: Present: cooperative - EENT Eyes: Present: EOMI ENT: Present: hearing grossly normal - Neck Neck: Present: normal ROM - Respiratory Respiratory: bilateral: CTA - Cardiovascular Rhythm: regular Heart sounds: normal: S1, S2 - Integumentary Integumentary: Present: normal turgor - Musculoskeletal Musculoskeletal: Present: gait normal - Psychiatric Psychiatric: Present: A&O x's 3, appropriate affect, intact judgment & insight - Additional findings Additional findings: Breast Exam: BRA: sports bra medium inspection: bilateral grade 2 ptosis, well-healed scar left chest wall related to vagus nerve stimulator for her seizures palpation: Right breast: Multi-positional exam fibrocystic changes no dominant masses or nodules of concern, is dense but no dominant masses or nodules of concern right axilla: No adenopathy of concern Left breast: Multi-positional exam fibrocystic changes no dominant masses or nodules of concern Left axilla: No adenopathy of concern Assessment and Plan Assessment: impression: Status post stereotactic core biopsy of the left breast benign concordant left breast Seizure disorder Depression/anxiety/bipolar Neuropathy left foot Surgery on left rotator cuff 4 times Tenderness right breast bilateral mammogram on 07-16-2023 BI-RADS 3 repeat left breast mammogram in 6 months Plan: repeat left breast mammogram in 6 months with examination at that time We have discussed lifestyle modification decreasing caffeine and nicotine to possibly help with the tenderness in the right breast she understands and will consider this Patient to follow-up sooner any questions or concerns Cc: Dr. Moscoso
== END ==
LOC: WWCWWP 08:16
PROVIDERS: ATTEND Surgery
DX: R92.8 Other abnormal and inconclusive findings on diagnostic imaging of breast (principal); R92.1 Mammographic calcification found on diagnostic imaging of breast; N64.4 Mastodynia; N60.11 Diffuse cystic mastopathy of right breast; N60.12 Diffuse cystic mastopathy of left breast; G40.909 Epilepsy, unspecified, not intractable, without status epilepticus; F41.9 Anxiety disorder, unspecified; F31.9 Bipolar disorder, unspecified; G62.9 Polyneuropathy, unspecified; F17.210 Nicotine dependence, cigarettes, uncomplicated; Z88.0 Allergy status to penicillin; Z88.8 Allergy status to other drugs, medicaments and biological substances

== ENCOUNTER → 2024-04-18 | Outpatient (CLI) | payer MEDICARE, OTHER ==
--- NOTE | 2024-04-18 07:44 | MM ---
Reason for Exam: Follow-up at short interval from prior study. Last screening mammogram was performed 9 month(s) ago. Patient History: Menarche at age 17. Patient has no children. Right ovary removed at age 40. Hysterectomy at age 40. Postmenopausal. Previous Hyperplasia w/o Atypia at age 56. 07/13/2022, Benign MG stereo VAD BX LT on the left side. Risk Values: Marry 5 year model risk: 1.5%. NCI Lifetime model risk: 9.3%. Prior Study Comparison: 06/26/2022 Left MG 3D work up w/cad LT, [facility]. 02/07/2023 Left MG 3D diag mammo w/cad LT, [facility]. 07/16/2023 Bilateral MG 3D diag mammo w/cad [facility], [facility]. Tissue Density: Left: There are scattered areas of fibroglandular density. Findings: Analyzed By CAD. Lateral asymmetric density at the site of patient's biopsy clip remains unchanged for 9 months. Additional short interval follow-up recommended. Possible postbiopsy changes. No new/recurrent microcalcifications or other discrete abnormality is seen. Generator device projecting over the left pectoralis on the MLO view. Overall Assessment: Probably benign, BI-RAD 3 Management: Diagnostic Mammogram of both breasts in 3 months. Total one-year follow-up left breast for suspected biopsy site changes and annual exam of the right breast. Results were given to the patient verbally at the time of exam. Patient should continue monthly self-breast exams. A clinical breast exam by your physician is recommended on an annual basis. This exam should not preclude additional follow-up of suspicious palpable abnormalities. Note on Marry scores and lifetime risk: 1. A Marry score greater than 3% is considered moderate risk. If this is the case, consider specialist referral to assess eligibility for a risk reducing agent. 2. If overall lifetime risk for the development of breast cancer is 20% or higher, the patient may qualify for future screening with alternating mammogram and breast MRI. [facility], , 04/18/2024 7:41 AM. Electronically signed and approved by: Arnoldo Caldwell M.D. Radiologist
== END | disposition home or self-care (01) ==
LOC: RADMAMWWP 06:42
PROVIDERS: ATTEND Family Medicine
DX: R92.8 Other abnormal and inconclusive findings on diagnostic imaging of breast (principal); R92.323 Mammographic fibroglandular density, bilateral breasts; Z78.0 Asymptomatic menopausal state
CPT/HCPCS: 77061; 77065

== ENCOUNTER → 2024-05-22 | Outpatient (CLI) | payer MEDICARE, OTHER ==
--- NOTE | 2024-05-25 12:32 | CTL ---
EXAMINATION TYPE: CT Low Dose Lung DATE OF EXAM: 05/22/2024 6:50 AM COMPARISON: None. SCREENING VISIT: Initial CT DIAGNOSTIC QUALITY: Limited, but interpretable CLINICAL INDICATION: Female, 58 years old with history of Z12.2 ENCNTR SCREEN FOR MALIGNANT NEOPLASM F17.210, PT DIAGNOSED WITH COPD X 10+ YEARS AGO, PT STATES SHE SMOKES 2-3 CIGARETTES/DAY NOW, Lung ca ncer screening, History of tobacco use. TECHNIQUE: Low dose computed tomography scan was performed through the chest at 1 mm thick sections a nd reconstructed images in the coronal plane at 1 mm thick sections. Contrast used: mL of , (none if empty) Oral contrast used: (none if empty) CT DLP: 68 mGycm, Automated exposure control for dose reduction was used. CT CTDI: 2.03 mGy, Automated exposure control for dose reduction was used. FINDINGS: LUNG NODULES: None. LUNGS: COPD: Severity: None Fibrosis: Severity: None Lymph nodes: None Other findings: None RIGHT PLEURAL SPACE: Effusion: None Calcification: None Thickening: None Pneumothorax: None LEFT PLEURAL SPACE: Effusion: None Calcification: None Thickening: None Pneumothorax: None HEART: Other: Ascending thoracic aorta at the level the main pulmonary artery measures 2.3 cm. The main pul monary artery at the bifurcation measures 2.1 cm. Heart Size: Normal Coronary calcification: Mild coronary artery calcifications present. Pericardial effusion: None OTHER FINDINGS: Upper abdomen: Normal Bony thorax: Normal Supraclavicular region: Normal IMPRESSION: No suspicious changes to suggest primary or metastatic neoplasm FOLLOW UP CT CHEST RECOMMENDATION: Follow-up low-dose CT chest one year CT LUNG RAD: Lung-Rad 1 Negative [facility], , 05/25/2024 12:29 PM
== END | disposition home or self-care (01) ==
LOC: RADCTMAIN 06:17
PROVIDERS: ATTEND Family Medicine
DX: Z12.2 Encounter for screening for malignant neoplasm of respiratory organs (principal); F17.210 Nicotine dependence, cigarettes, uncomplicated
CPT/HCPCS: 71271

== ENCOUNTER → 2024-06-30 | Outpatient (CLI) | payer MEDICARE, OTHER ==
--- NOTE | 2024-06-30 10:09 | US ---
EXAMINATION TYPE: US mass soft tissue chest/back DATE OF EXAM: 06/30/2024 COMPARISON: CT chest and abdomen May 11, 2022 CLINICAL INDICATION: Female, 58 years old with history of R10.9 SUBCUTANEOUS MASS; Lump right flank f or years TECHNIQUE: FINDINGS: Scanned patient's area of concern, right flank, unable to identify an abnormality by ultra sound at this time No suspicious solid or cystic mass or abnormal fluid collection is seen on images saved. No suspiciou s abnormalities seen on prior CT. IMPRESSION: As above. Unremarkable study. [facility], , 06/30/2024 10:07 AM
== END | disposition home or self-care (01) ==
LOC: RADUSWWP 09:24
PROVIDERS: ATTEND Orthopaedic Surgery Orthopaedic Surgery of the Spine
DX: R10.9 Unspecified abdominal pain (principal)

== ENCOUNTER → 2024-08-04 | Outpatient (CLI) | payer MEDICARE, OTHER ==
--- NOTE | 2024-08-04 07:23 | MM ---
Reason for Exam: Clinical finding. Last screening mammogram was performed 12 month(s) ago. Patient History: Menarche at age 17. Patient has no children. Right ovary removed at age 40. Hysterectomy at age 40. Postmenopausal. Previous Hyperplasia w/o Atypia at age 56. 07/13/2022, Benign MG stereo VAD BX LT on the left side. Risk Values: Marry 5 year model risk: 1.6%. NCI Lifetime model risk: 9.1%. Tissue Density: There are scattered areas of fibroglandular density. Findings: Analyzed By CAD. Left breast biopsy clip. No new suspicious masses, calcifications or distortions. Overall Assessment: Benign, BI-RAD 2 Management: Screening Mammogram of both breasts in 1 year. Results were given to the patient verbally at the time of exam. Patient should continue monthly self-breast exams. A clinical breast exam by your physician is recommended on an annual basis. This exam should not preclude additional follow-up of suspicious palpable abnormalities. Note on Marry scores and lifetime risk: 1. A Marry score greater than 3% is considered moderate risk. If this is the case, consider specialist referral to assess eligibility for a risk reducing agent. 2. If overall lifetime risk for the development of breast cancer is 20% or higher, the patient may qualify for future screening with alternating mammogram and breast MRI. [facility], , 08/04/2024 7:18 AM. Electronically signed and approved by: Josiah Marte DO
== END | disposition home or self-care (01) ==
LOC: RADMAMWWP 07:01
PROVIDERS: ATTEND Family Medicine
DX: R92.8 Other abnormal and inconclusive findings on diagnostic imaging of breast (principal); R92.323 Mammographic fibroglandular density, bilateral breasts; Z78.0 Asymptomatic menopausal state
CPT/HCPCS: 77062; 77066

== ENCOUNTER → 2024-08-07 | Outpatient (CLI) | payer MEDICARE, OTHER ==
[2024-08-07 07:57] VITALS: BP 106/70; PULSE 85; RESP 18; TEMP 97.7
--- NOTE | 2024-08-07 14:53 | P.PAINPG ---
PQRS Measure Charge Sheet Comment: HISTORY OF PRESENT ILLNESS: A 59 yr old female as a referral from Dr Boyer presents today w severe and chronic R flank pain x 3 mo secondary to subcutaneous mass for evaluation. Pt states pain level is provoked at 8 /10 in intensity, constant, localized in the R flank, achy in character without shooting pain. Pain has no provocation. Pain is alleviated by medications, repositioning and rest . PMH: OA, Colitis, Seizure Disorder, MDD/ Bipolar/ Anxiety PSH: L RCT Repair x4, Colonoscopy (2022), L Breast Biopsy (2022), Hysterectomy, Vagus Nerve Stimulator, Eye Surgery SH: Daily tobacco use, Hx ETOH abuse, No illicit drug use FH: Mo- COPD, CHF. Fa- CAD, CHF All: See list Medications include Percocet 10/325mg #60, Lidoderm 5% REVIEW OF ORGAN SYSTEMS: CONSTITUTIONAL: No fevers or chills. No recent weight loss. NEUROLOGICAL: + numbness and tingling along the distal extremities. No seizure disorders or headaches. MUSCULOSKELETAL: + pain PSYCHIATRIC: Denies current depression or suicidal thoughts. Physical Examinations : Constitutional : Cooperative , not in acute distress . Neurologic : Cranial nerve II to XII intact. No focal neurological deficits. Psychiatric : alert & oriented x 3. Matching mood & appropriate affect. Judgment & insight intact. Musculoskeletal : Cervical Spine Motor strength in the deltoid and biceps: Normal right side. Normal Left side Motor strength biceps and the wrist extensors: Normal right side . Normal left side Motor strength in the triceps muscle: Normal right side. Normal left side Deep tendon reflexes: Normal at the biceps. Normal at Brachioradialis. Normal at triceps Vertebral body tenderness to deep palpation over Cervical facet loading test: positive bilaterally Spurling test: positive bilaterally Neck distraction test: positive bilaterally Federico sign: positive bilaterally Lumbar spine Motor strength lower extremities ,thigh and legs 5/5 Right side , 5/5 Left side Deep tendon reflexes : Normal Knee Jerk. Normal Ankle Jerk Vertebral body tenderness over Brewer Test positive Lumbar facet Loading Test: positive Right / positive Left Range of motion of the lumbar spine Flexion 30 degrees, extension 10 degrees Straight Leg Raise test: Left/ Right positive at degrees Sindi test: positive right / positive left. Severe tenderness over the Sacroiliac joint on the Right / Left sides Gaenslen test: positive bilaterally Seated flexion test: positive bilaterally. Sacral spine : Severe tenderness over the Sacroiliac joint: right side / left side Range of motion: Flexion of the lumbar spine <60 degrees Range of motion: Extension of the lumbar spine <20 degrees Gaenslen's Test positive Sindi test: positive right side / left side Thigh Thrust Test Sacral Thrust Test Imaging: CT non contrast abd/ chest from 06/30/24 reviewed- no acute process Assessment/ Plan : R flank mass, possible inflammed ganglion nerve Recommendation of follow up w Dr Swift for possible peripheral nerve stimulator implant G89.4. All questions answered. I have spent greater than 30 minutes on patient care today. Dr Rdz was available by phone for the evaluation of this patient. The time was used to review the medical records including relevant urine studies and Prescription history (MAPs), review of the available imaging, evaluation and examination of the patient, coordination of care with the medical staff and if applicable referring physicians, as well as creation of the medical record PQRS Narrative: Smoking Status Current every day smoker Home Medications: Ambulatory Orders lamoTRIgine [LaMICtal] 200 mg PO BID 01/04/14 Levothyroxine Sodium [Synthroid] 50 mcg PO QAM 12/08/16 Omeprazole [PriLOSEC] 40 mg PO QAM 12/08/16 Topiramate [Topamax] 200 mg PO BID 12/08/16 oxyCODONE-APAP 10-325MG [Percocet 10-325 mg] 1 tab PO TID 12/08/16 Fludrocortisone [Florinef] 0.1 mg PO HS 05/08/17 Atorvastatin [Lipitor] 20 mg PO DAILY 12/25/18 QUEtiapine FUMARATE [QUEtiapine FUMARATE ER] 400 mg PO HS 01/10/19 Amitriptyline HCl [Elavil] 20 mg PO HS 11/17/19 sulfaSALAzine [Sulfasalazine] 500 mg PO BID 11/17/19 Brexpiprazole [Rexulti] 1 mg PO QAM 06/26/22 Verapamil [Isoptin] 120 mg PO HS 06/26/22 Albuterol Inhaler [Ventolin Hfa Inhaler] 1 - 2 puff INHALATION Q6H PRN 09/12/22 Ferrous Sulfate [Feosol] 325 mg PO DAILY 09/12/22 Fluticasone/Umeclidin/Vilanter [Trelegy Ellipta 100-62.5-25] 1 puff INHALATION QAM 09/12/22 Multivitamin [Multivitamins Adult Gummies] 1 each PO DAILY 09/27/22 Controlled Substance Measures - Controlled Substance Measures Is patient prescribed a controlled substance at discharge?: No
== END ==
LOC: PNWHC3 07:05
PROVIDERS: ATTEND Specialist
DX: M54.50 Low back pain, unspecified (principal); R22.9 Localized swelling, mass and lump, unspecified; Z88.0 Allergy status to penicillin; Z88.8 Allergy status to other drugs, medicaments and biological substances; F17.200 Nicotine dependence, unspecified, uncomplicated
CPT/HCPCS: 99202